=== PATIENT | male | born 1975 | race Caucasian/White ===

== ENCOUNTER 2017-10-31 07:56 | Inpatient (IN) ==
--- NOTE | 2017-10-30 20:39 | Discharge Summary ---
<Maya Madsen - Last Filed: 10/30/17 20:34> Date of Encounter: 10/30/17 - Discharge Diagnosis (1) Arthritis of knee, left Priority: Primary Status: Acute (2) Status post total knee replacement, left Priority: Primary Status: Acute (3) HTN (hypertension) Priority: Secondary Status: Chronic Qualifiers: Hypertension type: essential hypertension Qualified Code(s): I10 - Essential (primary) hypertension (4) DMII (diabetes mellitus, type 2) Priority: Secondary Status: Chronic Qualifiers: Diabetes mellitus skilled nursing insulin use: without petroleum terminal plant operator use Diabetes mellitus complication status: without complication Qualified Code(s): E11.9 - Type 2 diabetes mellitus without complications (5) Obesity Priority: Secondary Status: Chronic Qualifiers: Obesity type: due to excess calories Obesity classification: unspecified obesity classification Serious obesity comorbidity presence: without serious comorbidity Qualified Code(s): E66.09 - Other obesity due to excess calories - Hospital Course Hospital course: Mr. Garcia is a 42 year old male - Time Spent with Patient Total time spent providing and/or coordinating discharge services: - Discharge Medications Prescriptions: OxyCODONE/APAP 5/325 [Percocet 5/325 MG] 1 each PO Q6HR PRN 7 Days #28 tablet PRN Reason: Severe Pain Home Medications: Ergocalciferol (VITAMIN D2) [Vitamin D2 (50,000 UNIT)] 50,000 unit PO SUWE 09/10 [History] Nitroglycerin [Nitrostat] 0.4 mg SL AD PRN 09/10/15 [History] Omeprazole [PriLOSEC] 40 mg PO BID 09/10/15 [History] Potassium Chloride [K-Tab ER] 20 meq PO DAILY 09/10/15 [History] Celecoxib [Celebrex] 200 mg PO DAILY 07/08/17 [History] amLODIPine [Norvasc] 5 mg PO DAILY 07/08/17 [History] Aspirin Enteric Coated [Aspirin EC] 325 mg PO BID #20 tablet. 10/30/17 [Rx] Atorvastatin Calcium [Lipitor] 20 mg PO HS 10/31/17 [History] Budesonide/Formoterol 160/4.5 [Symbicort 160/4.5] 2 puff IH BIDR PRN 10/31/17 [ History] Escitalopram [Lexapro] 10 mg PO DAILY 10/31/17 [History] Fexofenadine HCl 180 mg PO DAILY 10/31/17 [History] Lisinopril/Hydrochlorothiazide [Zestoretic 20-25 mg Tablet] 1 tab PO DAILY 10/31 [History] clonazePAM [Klonopin] 0.5 mg PO TID PRN 10/31/17 [History] OxyCODONE/APAP 5/325 [Percocet 5/325 MG] 1 each PO Q6HR PRN 7 Days #28 tablet [Rx] Allergies/Adverse Reactions: 3 Allergy/AdvReac Type Severity Reaction Status Date / Time Amoxicillin Allergy Hives Verified 10/31/17 08:17 ampicillin Allergy Hives Verified 10/31/17 08:17 codeine Allergy Hives Verified 10/31/17 08:17 Penicillins Allergy Hives Verified 10/31/17 08:17 Primary care physician: Mitzi Cannon CNP - Patient Status Disposition: Transfer Inpatient Rehab Fac Condition: Good - Discharge Instructions Follow Up With: Saeid Fleming MD [Partnered Physician] - 11/30/17 4:45 pm Maya Madsen PAC [Physician Gray Mixing Operator] - 11/10/17 8:00 am Frank Lemus DO [Partnered Physician] - 12/20/17 9:30 am Mitzi Cannon CNP [Primary Care Provider] - Additional Instructions: Discharge Instructions: Total Knee Replacement Please call [facility] ([phone]), your Primary Care Physician, or report to the Emergency Room if you have any of the following symptoms: Nausea, vomiting, fever greater that 101.5, swelling, chest pain, shortness of breath, increased pain/redness/drainage/odor for your incision site, numbness/ tingling, or any other concerning symptoms. ACTIVITY:Weight-bearing as tolerated. You may progress off support (crutches or walker) as tolerated. MEDICATIONS: Upon discharge resume your home medications. Take all the medications as prescribed. Take a stool softener if taking narcotic pain medications. Stool softeners are only effective if you drink enough fluids. Drink 6-8 glass of water or fluids a day, unless this is not allowed for another health problem. Despite using stool softeners, if you haven't had a bowel movement in 3 days, please switch to a gentle laxative. Gentle laxatives are sold over the counter. You should have a bowel movement within 24 hours, if not call the office. You will be discharged from the hospital with a prescription for pain medication. You are encouraged to decrease the use of narcotic pain medication as tolerated. Should you require a refill, please call the office. [facility] prescribes narcotic pain medication for only 4-6 weeks after surgery. If you require pain medication beyond this time period, you may be referred to your Primary Care Physician or to the Pain Clinic for further evaluation. Plan ahead for refills on pain medication as many narcotics either need to be picked up at the office or mailed. It is best to call 48-72 hours in advance of needing a prescription refill so you don't run out of medication. To help control the post-operative pain, you may take NSAIDs (Aleve,Advil, Motrin, Ibuprofen, Naprosyn) or Tylenol as prescribed on the bottle in addition to the pain medication. ANTICOAGULATION (blood thinners): Continue your Aspirin, Lovenox or Coumadin as prescribed to help prevent a blood clot in the leg or in the lungs. As long as your incision remains dry and you tolerate the NSAIDs (Aleve, Advil, Motrin, ibuprofen, naprosyn), it is OK to use the NSAIDS while you are taking your anticoagulation medication. Should your incision start to drain, stop the NSAID and contact our office. Common symptoms of blood clot in the legs include: localized pain, swelling, calf tenderness, redness or discoloration of the skin. Blood clot in the lung symptoms include: shortness of breath, rapid pulse, sweating, and chest pain that worsens with deep breathing, coughing up blood, lightheadedness, feelings of anxiety. If you experience any of these symptoms notify your physician immediately, go to the emergency room, or if having trouble breathing, call 911. WOUND CARE: Leave the dressing on for 7 to 10days. You may change the dressing if it becomes saturated greater than 50%. Do not get the dressing wet at anytime. Wash your hands with antibacterial soap, rinse and dry prior to any wound care. If you have yisel the visiting nurse or rehab facility can remove the stapes 10-14 days after surgery and place steri-strips across the wound. Leave the steri-strips in place until they fall off on their won. You may let water from the shower run on top of the steri-strips. If you do not have a visiting nurse or rehab facility, you will need to return to the office at 10-14 days for the yisel to be removed. If you have itching or redness around the dressing call the office. FOLLOW-UP: Please follow up with your surgeon in the orthopedic clinic in 4 weeks from the day of surgery. If you have yisel that need to be removed, you will need to come back to the office in 10-14 days from the day of surgery. <Saeid Fleming - Last Filed: 11/02/17 06:33> Orders not resulted at time of discharge: Pending orders 10/31/17 US anesthesia pain block [US] Routine 10/31/17 00:01 XR knee LT limited 1-2V [XR] Routine H/H [Hemoglobin and Hematocrit] [HEME] Routine Date of Encounter: 11/02/17 Time of Encounter: 06:32 - Discharge Diagnosis (1) DMII (diabetes mellitus, type 2) Priority: Secondary Status: Chronic Qualifiers: Diabetes mellitus petroleum terminal plant operator insulin use: without petroleum terminal plant operator use Diabetes mellitus complication status: without complication Qualified Code(s): E11.9 - Type 2 diabetes mellitus without complications (2) Morbid obesity with BMI of 40.0-44.9, adult Priority: Secondary Status: Chronic (3) Spondylosis of lumbar region without myelopathy or radiculopathy Priority: Secondary Status: Chronic (4) Arthritis of knee, left Priority: Primary Status: Chronic (5) Status post total knee replacement, left Priority: Primary Status: Acute (6) HTN (hypertension) Priority: Secondary Status: Chronic Qualifiers: Hypertension type: essential hypertension Qualified Code(s): I10 - Essential (primary) hypertension - Hospital Course Hospital course: Mr. Garcia is a 42 year old male Status post left total knee replacement Discharge todayThe patient had an uneventful postoperative course. They received antibiotics and physical therapy and were discharged in stable condition. There will follow-up in the office in 2 weeks. - Time Spent with Patient Total time spent providing and/or coordinating discharge services: Primary care physician: Mitzi Cannon CNP - Patient Status Functional capacity at discharge: uses cane/walker Overall status at discharge: patient is progressing back to baseline
[2017-10-31] MEDS ORDERED: Albuterol 2.5 MG/3 ML NEBULIZER IH ONE (08:22)
[2017-10-31] MEDS ORDERED: Clindamycin 900 MG/50 ML 900 MG/50 ML IV.SOLN IVPB ONE (08:22)
[2017-10-31] MEDS ORDERED: Famotidine 20 MG/2 ML VIAL IVP ONE (08:26)
[2017-10-31] MEDS ORDERED: Plasma-Lyte A (PH 7.4) 1,000 ML IVC SCH (08:30)
--- NOTE | 2017-10-31 08:53 | Anesthesia Evaluation PreOp ---
Date of Encounter: 10/31/17 Time of Encounter: 08:47 - Past History Planned Operation: Left Total Knee Cardiac History: HTN, Hyperlipidemia Pulmonary History: Asthma Other Medical History: Renal (Stones), Diabetes Type II, GERD, Other ( Pancreatic insuff., [place] BMI-43) Anesthesia History: No Prior Anesthetic Complications, Past Anesthesia (Apy,, Left Knee scope, EGD,) Alcohol Use: none Drug use: none Medications and Allergies Ergocalciferol (VITAMIN D2) [Vitamin D2 (50,000 UNIT)] 50,000 unit PO SUWE 09/10 [History] Nitroglycerin [Nitrostat] 0.4 mg SL AD PRN 09/10/15 [History] Omeprazole [PriLOSEC] 40 mg PO BID 09/10/15 [History] Potassium Chloride [K-Tab ER] 20 meq PO DAILY 09/10/15 [History] Celecoxib [Celebrex] 200 mg PO DAILY 07/08/17 [History] amLODIPine [Norvasc] 5 mg PO DAILY 07/08/17 [History] Aspirin Enteric Coated [Aspirin EC] 325 mg PO BID #20 tablet. 10/30/17 [Rx] OxyCODONE Immed Rel [Roxicodone 5 MG] 5 mg PO Q6H PRN 7 Days #28 tablet [Rx] Atorvastatin Calcium [Lipitor] 20 mg PO HS 10/31/17 [History] Budesonide/Formoterol 160/4.5 [Symbicort 160/4.5] 2 puff IH BIDR PRN 10/31/17 [ History] Escitalopram [Lexapro] 10 mg PO DAILY 10/31/17 [History] Fexofenadine HCl 180 mg PO DAILY 10/31/17 [History] Lisinopril/Hydrochlorothiazide [Zestoretic 20-25 mg Tablet] 1 tab PO DAILY 10/31 [History] clonazePAM [Klonopin] 0.5 mg PO TID PRN 10/31/17 [History] 3 Allergy/AdvReac Type Severity Reaction Status Date / Time Amoxicillin Allergy Hives Verified 10/31/17 08:17 ampicillin Allergy Hives Verified 10/31/17 08:17 codeine Allergy Hives Verified 10/31/17 08:17 Penicillins Allergy Hives Verified 10/31/17 08:17 - Meds/Allergy Pre-op Review Medications Reviewed: Yes Allergies Reviewed: Yes Beta Blockers on Current Med List: No Anesthesia Results - Labs Laboratory Tests 10/12/17 10/12/17 10/12/17 14:10 14:10 14:10 WBC 11.6 H Hgb 15.8 Hct 45.2 Plt Count 291 INR 1.1 Sodium 139 Potassium 3.9 Carbon Dioxide 29 BUN 18 - Imaging EKG: report reviewed (SINUS RHYTHM) Anesthesia Exam O2 Sat Height 1.73 m Height 1.73 m Weight 128.367 kg Weight 128.367 kg O2 Sat by Pulse Oximetry 96 Vital Signs Temp Pulse Resp BP Pulse Ox 98.2 F 89 18 131/90 96 10/31/17 08:15 10/31/17 08:15 10/31/17 08:15 10/31/17 08:15 10/31/17 08:15 NPO (# of Hours): > 8 Hrs Pain Scale: 0 Pain Scale Used: Numeric (1 - 10) - HEENT Pupil (Motor): Pupils equal, EOMI Mallampati: II Teeth: Normal Oral Opening: Greater than 3 - CELL OPERATION SUPERVISOR LOC: Oriented CELL OPERATION SUPERVISOR Motor: Normal RUE, Normal LUE, Normal RLE, Normal LLE, Normal Face CELL OPERATION SUPERVISOR Sensory: Normal: RUE, LUE, RLE, LLE, Face - Cardiac Rhythm: Regular Murmur: None JVD: No Carotid Bruit: No - Pulmonary Breath Sounds: bilateral Clear Respiratory Effort: Symmetrical Anesthesia Assess/Plan ASA Score: 3 Modified Kisha Scale for Level of Consciousness: Cooperative, oriented, and tranquil Anesthetic Plan: General, Regional Autologous Blood: Yes Monitoring Plan: Standard Monitors Recovery Plan: PACU
[2017-10-31] MEDS: Gabapentin 300 MG CAPSULE PO STA (08:57)
--- NOTE | 2017-10-31 09:07 | History & Physical Report ---
Date of Encounter: 10/31/17 Time of Encounter: 09:07 24 Hour HP Update - Instructions Instructions: If the History and Physical is less than 30 days old and was completed prior to A.M. admission and or procedure and has NOT been updated on calendar day of procedure please complete this update prior to performing procedure. - Update Patient reports changes in Medical Condition: No Changes in examination, assessment, or condition: No Changes in Medication: No Preop tests/diagnostics Reviewed: Yes Surgery Remains Indicated: Yes Consent for Planned Operative Procedure(s) Verified: Yes - Pre-Operative Checklist Preoperative Checklist Indicated: No Prophylactic Antibiotic Ordered: Yes Is VTE Prophylaxis Indicated?: Yes
[2017-10-31] MEDS ORDERED: Lidocaine -MPF 2% 2 ML VIAL ONE (09:50)
[2017-10-31] MEDS ORDERED: Dexamethasone 4 MG/ML VIAL ONE (09:50)
[2017-10-31] MEDS ORDERED: Ondansetron 4 MG/2 ML VIAL ONE (09:50)
[2017-10-31] MEDS ORDERED: *HR* Propofol 200 MG/20 ML VIAL IVP ONE (09:51)
[2017-10-31] MEDS ORDERED: *HR* FentaNYL (PF) 100 MCG/2 ML VIAL ONE ×2 (09:51→11:43)
[2017-10-31] MEDS ORDERED: *HR* Midazolam HCl 2 MG/2 ML VIAL ONE (09:51)
[2017-10-31] MEDS ORDERED: ROPIVACAINE HCL/PF 0.5% 30 ML VIAL ONE ×2 (10:17)
[2017-10-31] MEDS ORDERED: Ethanol\\Acetic Acid\\Na Ace\\Ben 1,000 ML IRRIG.SOLN IR ONE (10:21)
[2017-10-31] MEDS ORDERED: *HR* Succinylcholine 200 MG/10 ML VIAL IVP ONE (10:57)
[2017-10-31] MEDS ORDERED: Acetaminophen IV 1,000 MG/100 ML INFUS..BTL ONE (11:04)
[2017-10-31] MEDS ORDERED: *HR* PHENYLEPHRINE 1,000 MCG/10 ML SYRINGE IVP ONE (11:23)
[2017-10-31] MEDS ORDERED: *HR* OxyCODONE Immed Rel 5 MG TABLET PO PRN ×2 (11:30→13:32)
[2017-10-31] MEDS ORDERED: Ondansetron 4 MG/2 ML VIAL IVP PRN ×2 (11:30→13:32)
[2017-10-31] MEDS ORDERED: *HR* Midazolam HCl 2 MG/2 ML VIAL IVP PRN (11:30)
[2017-10-31] MEDS ORDERED: *HR* HYDROmorphone 2 MG TABLET PO PRN (11:30)
--- NOTE | 2017-10-31 11:54 | Orthopedic Operative Note ---
Date of procedure: 10/31/17 Pre-op diagnosis: Left knee arthritis Post-op diagnosis: same Procedure: Procedure: Left robotic-assisted Total knee replacement Estimated blood loss: 200 cc Hardware: Metal and polyethylene replacement. [place] Femur: 4 Tibia: 5 PS insert: 9 Patella: 39 Exam Under anesthesia: 0 degrees extension 1 degree valgus as calculated by the robot full flexion and no instability Procedural Notes: Grade 4 arthritic changes medial compartment and patellofemoral joint Operative procedure: The patient was brought to the operating room and placed on the operating room table. After general anesthesia was administered the operative knee was examined. Findings were noted in the exam under anesthesia. The operative extremity was prepped and draped in sterile surgical fashion. The patient received IV antibiotics prior to skin incision. A standard midline incision was made centered over the patella. The incision was made through the skin and subcutaneous tissue. A medial parapatellar tendon approach was performed. Care was taken to preserve tissue along the medial aspect of the patella. And to protect the patella tendon. The deep MCL was released off the medial tibia. The infra patella fat pad was excised. The patella was everted and cut was made at the level of the insertion of the quadriceps and patella tendon. The patella was sized to 39 the guide was seated and the lug holes are drilled. Knee was brought into flexion. Patient noted to have grade 4 arthritic changes medial compartment patellofemoral joint. Steinmann pins were placed in the tibia and the femur for the tibial and femoral arrays respectively. Checkpoints were also placed in the tibia and the femur for calculation purposes. The knee including the femur and the tibial registered. Osteophytes , ACL and PCL were excised at this point. Extension and flexion were assessed with a valgus stress components were adjusted on the computer to balance the knee. Femoral cuts were made first with robotic assistance, these included the anterior cut posterior cuts chamfer cuts. Tibial cut was then performed with robotic assistance as well. Bone fragments were removed, as well as the medial and lateral meniscus. The size 4 femoral guide was seated box cut was made lug holes are drilled. The size 5 tibial tray was seated and prepared with the fin cutter. Trial reduction with the 9 PS Anusha revealed extension of 0 degree and neutral alignment and full flexion. No varus valgus instability. Trial reduction revealed excellent patella tracking. All trial components were removed all bony surfaces were irrigated. The Tibia was seated followed by the femur, The Anusha size 9 was seated and secured patella. Patient had similar findings for motion and stability. The knee was closed by the PA. The knee was then irrigated out with 2 L of pulse irrigation. The extensor mechanism was closed with #2 FiberWire suture and #2 PDS suture. The subcutaneous tissue was then irrigated and closed deep with #1 PDS suture superficially with 0 PDS suture and skin was closed with zip tie The patient was then placed in a sterile dressing and a postoperative brace extubated and transferred to recovery room in stable condition. Anesthesia: GETA Surgeon: Saeid Fleming Was there an electrician assistant present: Yes Reimbursement Consultant: July Hernandez Estimated blood loss (cc): 200 Condition: stable Disposition: PACU
[2017-10-31] MEDS ORDERED: EPHEDrine 50 MG/ML VIAL ONE (12:03)
--- NOTE | 2017-10-31 12:04 | Anesthesia Procedures ---
Date of Encounter: 10/31/17 Time of Encounter: 10:30 Procedures: Anesthesia - Nerve Block Procedure Date: 10/31/17 Time: 10:30 Allergies/Adv Reactions: Amoxicillin Allergy (Verified 10/31/17 08:17) Hives ampicillin Allergy (Verified 10/31/17 08:17) Hives codeine Allergy (Verified 10/31/17 08:17) Hives Penicillins Allergy (Verified 10/31/17 08:17) Hives Surgical Procedure: left total knee robotic Checklist: Correct Patient Identifier, Correct procedure, History checked Correct side: Left Blood Thinner: No Monitor Applied: EKG, BP, Pulse Oximetry Supplemental Oxygen via Nasal Cannula (L/min): 2 Sedation: Versed (mg): 2 Sedation: Fentanyl (mcg): 100 Indication: Post Op Analgesia Pre-op Neuro Deficits: No Block Type: Femoral, Other (IPACK) Catheter placed: No Sterile Technique: Yes Ultrasound used: Yes Anatomy identified: Yes Visual spread of Local: Yes Neuro Stimulation: Yes Nerve Stimulator Range: 0.2 - 0.4 mA Blood on Needle Aspiration: No Smooth Injection of Local: Yes Pain with Injection of Local: No Prep: Chlorhexadine Needle: 21 x 100 mm Stimuplex Local: Ropivacaine (0.5% Ropi 30ml with 10mg Decadron (femoral) 0.25% Ropi 20ml IPACK) Volume (cc): 50 Number of Attempts: 1 Complications: None/effective block Vitals: see nurses notes
--- NOTE | 2017-10-31 13:09 | Anesthesia Evaluation Post Op ---
Date of Encounter: 10/31/17 Time of Encounter: 13:15 - Vital Signs Vital Signs: Vital Signs/O2 Sat/Glucose, Most Current Temp Pulse Resp BP Pulse Ox 10/31/17 12:49 111 12 140/90 96 10/31/17 12:39 112 16 122/80 99 10/31/17 12:29 98.6 F 118 21 118/79 95 10/31/17 10:43 82 18 148/86 98 10/31/17 10:34 82 18 147/93 96 10/31/17 10:24 93 18 149/100 99 - Lungs Lungs: Clear Ascult./Percussion - Airway Airway: Non-obstructed - Cardiovascular Regular Rate - Mental Status Mental Status: Alert & Oriented, Answers Appropriately - Pain Pain Scale: 1 - Nausea Vomiting Nausea Vomiting: Not Present - Hydration Hydration: Ice chips - Discharge PostOp Status: Transfer Patient to floor
[2017-10-31] MEDS ORDERED: clonazePAM 0.5 MG TABLET PO PRN (13:32)
[2017-10-31] MEDS ORDERED: Dextrose Gel 15 GM/37.5 ML TUBE PO PRN ×2 (13:32)
[2017-10-31] MEDS ORDERED: D5% in Water 1,000 ML IVC PRN (13:32)
[2017-10-31] MEDS ORDERED: Sennosides 8.6 MG TABLET PO PRN (13:32)
[2017-10-31] MEDS ORDERED: Nitroglycerin 0.4 MG TAB.SUBL SL PRN (13:32)
[2017-10-31] MEDS ORDERED: Budesonide/Formoterol 160/4.5 MDI IH PRN (13:32)
[2017-10-31] MEDS ORDERED: Temazepam 15 MG CAPSULE PO PRN (13:32)
[2017-10-31] MEDS ORDERED: Naloxone 0.4 MG/ML INJ IVP PRN (13:32)
[2017-10-31] MEDS ORDERED: *HR* Dextrose 50 % in Water (Syg) 50 ML SYRINGE IVP PRN (13:32)
[2017-10-31] MEDS ORDERED: Ringers Solution, Lactated 1,000 ML IVC SCH (13:32)
[2017-10-31] MEDS ORDERED: MOM Conc 10 ML UD.LIQ PO PRN (13:32)
[2017-10-31 13:36] LABS: Hematocrit 41.5 % (37.5-50.1); Hemoglobin 14.2 g/dL (12.9-16.9)
[2017-10-31] MEDS: Insulin LISPRO 300 UNITS/3 ML VIAL SQ SCH ×3 (14:20→20:46)
[2017-10-31] MEDS: *HR* OxyCODONE Immed Rel 5 MG TABLET PO PRN ×2 (15:28→21:56)
[2017-10-31] MEDS ORDERED: Ketorolac 15 MG/ML VIAL IVP ONE (17:26)
[2017-10-31] MEDS: *HR* Enoxaparin 30 MG/0.3 ML SYRINGE SQ SCH (17:45)
[2017-10-31] MEDS: Clindamycin 900 MG/50 ML 900 MG/50 ML IV.SOLN IVPB SCH (17:46)
[2017-10-31] MEDS ORDERED: *HR* Enoxaparin 30 MG/0.3 ML SYRINGE SQ SCH (18:00)
[2017-11-01] MEDS: Clindamycin 900 MG/50 ML 900 MG/50 ML IV.SOLN IVPB SCH (00:36)
[2017-11-01] MEDS: *HR* OxyCODONE Immed Rel 5 MG TABLET PO PRN ×2 (05:26→12:23)
[2017-11-01] MEDS: *HR* Enoxaparin 30 MG/0.3 ML SYRINGE SQ SCH ×2 (05:26→16:53)
[2017-11-01] MEDS ORDERED: Ketorolac 30 MG/ML VIAL IVP PRN (06:29)
--- NOTE | 2017-11-01 06:29 | Orthopedics Progress Note ---
Date of Encounter: 11/01/17 Time of Encounter: 06:29 - Assessment and Plan (1) DMII (diabetes mellitus, type 2) Current Visit: No Status: Chronic Qualifiers: Diabetes mellitus terminal press operator insulin use: without terminal press operator use Diabetes mellitus complication status: without complication Qualified Code(s): E11.9 - Type 2 diabetes mellitus without complications (2) Morbid obesity with BMI of 40.0-44.9, adult Current Visit: Yes Status: Chronic (3) Spondylosis of lumbar region without myelopathy or radiculopathy Current Visit: No Status: Chronic (4) Arthritis of knee, left Current Visit: No Status: Chronic (5) Status post total knee replacement, left Current Visit: No Status: Acute (6) HTN (hypertension) Current Visit: No Status: Chronic Qualifiers: Hypertension type: essential hypertension Qualified Code(s): I10 - Essential (primary) hypertension Subjective Interval history: Patient was seen this morning doing well without complaints. Afebrile vital signs stable. Operative extremity: Neurovascularly intact Dressing clean dry and intact Calves nontender Assessment and plan: Continue with postoperative care Objective Vital signs: Vital Signs Temp Pulse Resp BP Pulse Ox 11/01/17 04:05 97.8 F 110 16 115/73 96 10/31/17 23:19 97.9 F 119 18 112/65 96 10/31/17 20:01 97.9 F 118 16 107/66 94 10/31/17 16:34 98.6 F 100 18 136/78 95 10/31/17 15:34 97.6 F 114 16 142/77 96 10/31/17 14:19 97.6 F 114 16 142/77 96 10/31/17 13:33 98.6 F 117 18 132/73 94 10/31/17 13:09 98.7 F 112 16 142/84 97 10/31/17 12:59 98.7 F 111 16 127/81 97 10/31/17 12:49 111 12 140/90 96 10/31/17 12:39 112 16 122/80 99 10/31/17 12:29 98.6 F 118 21 118/79 95 10/31/17 10:43 82 18 148/86 98 10/31/17 10:34 82 18 147/93 96 10/31/17 10:24 93 18 149/100 99 10/31/17 08:15 98.2 F 89 18 131/90 96 Intake and Output 10/31/17 10/31/17 11/01/17 15:59 23:59 07:59 Intake Total 50 / 50 450 / 450 480 / 480 Output Total 200 / 200 200 / 200 350 / 350 Balance -150 / -150 250 / 250 130 / 130 Intake: IV Fluids 50 / 50 50 / 50 Cleocin Premix 900 MG/50 ML 900 50 / 50 50 / 50 mg In 50 ml @ 50 mls/hr IVPB Q8HR [facility] Rx#:[id number] Oral 0 / 0 400 / 400 480 / 480 Output: Urine 200 / 200 350 / 350 Estimated Blood Loss 200 / 200 Other: Weight 128.367 kg Blood Glucose* 176 263 - Labs CBC & BMP: 10/31/17 12:55 Labs: Abnormal lab results POC Glucose 263 (58-89) H 10/31/17 20:13 - VTE Documentation of Mechanical Device: Venous foot pump, device Consult Discharge Plan - Plan Referrals: Mitzi Cannon ASSET SPECIALIST [Primary Care Provider] -
[2017-11-01] MEDS ORDERED: Acetaminophen IV 1,000 MG/100 ML INFUS..BTL IVPB PRN (06:30)
[2017-11-01 06:57] LABS: Hematocrit 38.4 % (37.5-50.1); Hemoglobin 12.9 g/dL (12.9-16.9)
[2017-11-01 07:13] LABS: BUN/Creatinine Ratio 27 (6-26); Blood Urea Nitrogen 26 mg/dL (6-20); Calcium 8.8 mg/dL (8.6-10.3); Carbon Dioxide 29 mEq/L (23-29); Chloride 97 mEq/L (98-107); Glucose 206 mg/dL (70-105); Osmolality,Calculated 291 (280-300); Potassium 3.3 mEq/L (3.5-5.1); Sodium 135 mEq/L (136-145); eGFR For African Americans > 60 (> 60); eGFR For Non-African Americans > 60 (> 60)
[2017-11-01] MEDS: amLODIPine 5 MG TABLET PO SCH (08:05)
[2017-11-01] MEDS: Insulin LISPRO 300 UNITS/3 ML VIAL SQ SCH ×4 (08:07→23:52)
[2017-11-01] MEDS: Ketorolac 30 MG/ML VIAL IVP PRN ×2 (08:34→22:14)
[2017-11-01] MEDS: Loratadine 10 MG TABLET PO SCH (09:30)
[2017-11-01] MEDS ORDERED: *HR* OxyCODONE/APAP 5/325 TABLET PO PRN (13:00)
--- NOTE | 2017-11-01 15:29 | Event Note ---
Date of Encounter: 11/01/17 Time of Encounter: 12:00 PCR - POD#1 Left TKR - robo 11/01/17 Patient seen at bedside. Labs reviewed. Pain control: Discussed in depth - he refused PT yesterday but willing to participate this morning. Participating in PT. All questions and concerns addressed. Educated on use of incentive spirometer. Encouraged ambulation and proper hydration. Patient educated on post-operative restrictions and post-operative care. Addressed: Changing pain medication to Percocet - new RX printed. Added Lidoderm patch Taking Toradol. Discharge plan: D/C home with HH once PT helps with stairs and pain better controlled - goal is Tuesday AM. HH continuity placed.
--- NOTE | 2017-11-01 15:33 | Physician Discharge Referral ---
Home Health/Hosp Referral Info Transfer to: Home Health Attending Provider: Provider in Charge Post Discharge: PCP - Diagnosis (1) Arthritis of knee, left Priority: Primary Status: Chronic (2) Status post total knee replacement, left Priority: Primary Status: Acute (3) HTN (hypertension) Priority: Secondary Status: Chronic (4) DMII (diabetes mellitus, type 2) Priority: Secondary Status: Chronic (5) Obesity Priority: Secondary Status: Chronic - Respiratory Orders None Smoking Cessation: Smoking cessation has been advised. For more information, call the [place] Tobacco Quit Line at 4-919-RVPC-NOW. - Diet/Nutrition Diet/Nutrition Orders: Regular - Activity Activity Orders: Up ad sachi, Ambulate - Services Needed Following services are medically necessary services: Nursing, Home Health Aide, Physical Therapy, Occupational Therapy Home Care Orders: Knee Continuity: Opsite dressing, leave intact until first post-operative visit. If dressing becomes >50% saturated, contact office, remove dressing and place appropriate dressing in its place. Do not allow for dressing to get wet. Zipline/[place] in place, plan to remove at post-operative day #14-16. Total Joint Precautions x 6 weeks Apply cold therapy wrap 3-6x/day for 20 minutes at a time. Encourage ambulation throughout the day Use Incentive spirometer 10x/hour. Elevate affected extremity above heart as tolerated. Brace: Wear knee immobilizer at night x 2 weeks. - Transfer Medications Prescriptions: OxyCODONE/APAP 5/325 [Percocet 5/325 MG] 1 each PO Q6HR PRN 7 Days #28 tablet PRN Reason: Severe Pain Home Medications: Ergocalciferol (VITAMIN D2) [Vitamin D2 (50,000 UNIT)] 50,000 unit PO SUWE 09/10 [History] Nitroglycerin [Nitrostat] 0.4 mg SL AD PRN 09/10/15 [History] Omeprazole [PriLOSEC] 40 mg PO BID 09/10/15 [History] Potassium Chloride [K-Tab ER] 20 meq PO DAILY 09/10/15 [History] Celecoxib [Celebrex] 200 mg PO DAILY 07/08/17 [History] amLODIPine [Norvasc] 5 mg PO DAILY 07/08/17 [History] Aspirin Enteric Coated [Aspirin EC] 325 mg PO BID #20 tablet. 10/30/17 [Rx] Atorvastatin Calcium [Lipitor] 20 mg PO HS 10/31/17 [History] Budesonide/Formoterol 160/4.5 [Symbicort 160/4.5] 2 puff IH BIDR PRN 10/31/17 [ History] Escitalopram [Lexapro] 10 mg PO DAILY 10/31/17 [History] Fexofenadine HCl 180 mg PO DAILY 10/31/17 [History] Lisinopril/Hydrochlorothiazide [Zestoretic 20-25 mg Tablet] 1 tab PO DAILY 10/31 [History] clonazePAM [Klonopin] 0.5 mg PO TID PRN 10/31/17 [History] OxyCODONE/APAP 5/325 [Percocet 5/325 MG] 1 each PO Q6HR PRN 7 Days #28 tablet [Rx] Allergies/Adverse Reactions: 3 Allergy/AdvReac Type Severity Reaction Status Date / Time Amoxicillin Allergy Hives Verified 10/31/17 08:17 ampicillin Allergy Hives Verified 10/31/17 08:17 codeine Allergy Hives Verified 10/31/17 08:17 Penicillins Allergy Hives Verified 10/31/17 08:17 Certification: Further, I certify that my clinical findings support that this patient is homebound (i.e. absences from home require considerable and taxing effort and are for medical reasons or yazidism services or infrequently or short duration when for other reasons) because: Homebound Reason: Absences from home are contraindicated except to recieve medical care Attestation: My signature below is to certify that this patient is under my care and that I, or nurse practitioner, or a physician's virtual customer assistant working with me, has a face-to -face encounter with this patient.
[2017-11-01] MEDS: *HR* OxyCODONE/APAP 10/325 TABLET PO PRN (21:10)
[2017-11-02] MEDS: Ketorolac 30 MG/ML VIAL IVP PRN ×2 (04:02→09:50)
[2017-11-02] MEDS: *HR* Enoxaparin 30 MG/0.3 ML SYRINGE SQ SCH (05:36)
[2017-11-02 06:33] LABS: Hematocrit 33.7 % (37.5-50.1); Hemoglobin 11.7 g/dL (12.9-16.9)
--- NOTE | 2017-11-02 06:34 | Orthopedics Progress Note ---
Date of Encounter: 11/02/17 Time of Encounter: 06:33 - Assessment and Plan (1) DMII (diabetes mellitus, type 2) Current Visit: No Status: Chronic Qualifiers: Diabetes mellitus intermediate card tender insulin use: without intermediate card tender use Diabetes mellitus complication status: without complication Qualified Code(s): E11.9 - Type 2 diabetes mellitus without complications (2) Morbid obesity with BMI of 40.0-44.9, adult Current Visit: Yes Status: Chronic (3) Spondylosis of lumbar region without myelopathy or radiculopathy Current Visit: No Status: Chronic (4) Arthritis of knee, left Current Visit: No Status: Chronic (5) Status post total knee replacement, left Current Visit: No Status: Acute (6) HTN (hypertension) Current Visit: No Status: Chronic Qualifiers: Hypertension type: essential hypertension Qualified Code(s): I10 - Essential (primary) hypertension Subjective Interval history: Patient was seen this morning doing well without complaints. Afebrile vital signs stable. Operative extremity: Neurovascularly intact Dressing clean dry and intact Calves nontender Assessment and plan: Continue with postoperative care Discharged today Objective Vital signs: Vital Signs Temp Pulse Resp BP Pulse Ox 11/01/17 23:25 98.1 F 101 16 148/90 92 11/01/17 20:12 98.6 F 108 16 146/81 95 11/01/17 16:41 98.0 F 87 16 117/82 96 11/01/17 11:26 98.3 F 111 16 122/82 96 11/01/17 07:32 98.3 F 104 16 118/72 98 Intake and Output 11/01/17 11/01/17 11/02/17 15:59 23:59 07:59 Intake Total 360 / 360 50 / 50 Output Total 200 / 200 350 / 350 380 / 380 Balance 160 / 160 -300 / -300 -380 / -380 Intake: Oral 360 / 360 50 / 50 Output: Urine 200 / 200 350 / 350 380 / 380 Other: Meal Lunch Percent of Meal Consumed 100% Blood Glucose* 188 181 - Labs CBC & BMP: 11/01/17 06:29 11/01/17 06:29 Labs: Abnormal lab results Sodium 135 mEq/L (136-145) L 11/01/17 06:29 Potassium 3.3 mEq/L (3.5-5.1) L 11/01/17 06:29 Chloride 97 mEq/L (98-107) L 11/01/17 06:29 BUN 26 mg/dL (6-20) H 11/01/17 06:29 BUN/Creatinine Ratio 27 (6-26) H 11/01/17 06:29 Glucose 206 mg/dL (70-105) H 11/01/17 06:29 POC Glucose 181 (58-89) H 11/01/17 20:03 - VTE Documentation of Mechanical Device: Venous foot pump, device Consult Discharge Plan - Plan Additional Instructions: Discharge Instructions: Total Knee Replacement Please call [facility] ([phone]), your Primary Care Physician, or report to the Emergency Room if you have any of the following symptoms: Nausea, vomiting, fever greater that 101.5, swelling, chest pain, shortness of breath, increased pain/redness/drainage/odor for your incision site, numbness/ tingling, or any other concerning symptoms. ACTIVITY:Weight-bearing as tolerated. You may progress off support (crutches or walker) as tolerated. MEDICATIONS: Upon discharge resume your home medications. Take all the medications as prescribed. Take a stool softener if taking narcotic pain medications. Stool softeners are only effective if you drink enough fluids. Drink 6-8 glass of water or fluids a day, unless this is not allowed for another health problem. Despite using stool softeners, if you haven't had a bowel movement in 3 days, please switch to a gentle laxative. Gentle laxatives are sold over the counter. You should have a bowel movement within 24 hours, if not call the office. You will be discharged from the hospital with a prescription for pain medication. You are encouraged to decrease the use of narcotic pain medication as tolerated. Should you require a refill, please call the office. [facility] prescribes narcotic pain medication for only 4-6 weeks after surgery. If you require pain medication beyond this time period, you may be referred to your Primary Care Physician or to the Pain Clinic for further evaluation. Plan ahead for refills on pain medication as many narcotics either need to be picked up at the office or mailed. It is best to call 48-72 hours in advance of needing a prescription refill so you don't run out of medication. To help control the post-operative pain, you may take NSAIDs (Aleve,Advil, Motrin, Ibuprofen, Naprosyn) or Tylenol as prescribed on the bottle in addition to the pain medication. ANTICOAGULATION (blood thinners): Continue your Aspirin, Lovenox or Coumadin as prescribed to help prevent a blood clot in the leg or in the lungs. As long as your incision remains dry and you tolerate the NSAIDs (Aleve, Advil, Motrin, ibuprofen, naprosyn), it is OK to use the NSAIDS while you are taking your anticoagulation medication. Should your incision start to drain, stop the NSAID and contact our office. Common symptoms of blood clot in the legs include: localized pain, swelling, calf tenderness, redness or discoloration of the skin. Blood clot in the lung symptoms include: shortness of breath, rapid pulse, sweating, and chest pain that worsens with deep breathing, coughing up blood, lightheadedness, feelings of anxiety. If you experience any of these symptoms notify your physician immediately, go to the emergency room, or if having trouble breathing, call 911. WOUND CARE: Leave the dressing on for 7 to 10days. You may change the dressing if it becomes saturated greater than 50%. Do not get the dressing wet at anytime. Wash your hands with antibacterial soap, rinse and dry prior to any wound care. If you have yisel the visiting nurse or rehab facility can remove the stapes 10-14 days after surgery and place steri-strips across the wound. Leave the steri-strips in place until they fall off on their won. You may let water from the shower run on top of the steri-strips. If you do not have a visiting nurse or rehab facility, you will need to return to the office at 10-14 days for the yisel to be removed. If you have itching or redness around the dressing call the office. FOLLOW-UP: Please follow up with your surgeon in the orthopedic clinic in 4 weeks from the day of surgery. If you have yisel that need to be removed, you will need to come back to the office in 10-14 days from the day of surgery. Referrals: Saeid Fleming MD [Partnered Physician] - 11/30/17 4:45 pm Maya Madsen PAC [Physician Supervisor Stitching Department] - 11/10/17 8:00 am Frank Lemus DO [Partnered Physician] - 12/20/17 9:30 am Mitzi Cannon CNP [Primary Care Provider] - Prescriptions: OxyCODONE/APAP 5/325 [Percocet 5/325 MG] 1 each PO Q6HR PRN 7 Days #28 tablet PRN Reason: Severe Pain
[2017-11-02 06:46] LABS: BUN/Creatinine Ratio 33 (6-26); Blood Urea Nitrogen 26 mg/dL (6-20); Calcium 8.5 mg/dL (8.6-10.3); Carbon Dioxide 32 mEq/L (23-29); Chloride 99 mEq/L (98-107); Glucose 141 mg/dL (70-105); Osmolality,Calculated 291 (280-300); Potassium 3.1 mEq/L (3.5-5.1); Sodium 137 mEq/L (136-145); eGFR For African Americans > 60 (> 60); eGFR For Non-African Americans > 60 (> 60)
[2017-11-02 07:11] VITALS: BP 142/96
[2017-11-02] MEDS: *HR* OxyCODONE/APAP 10/325 TABLET PO PRN (07:16)
[2017-11-02] MEDS: Insulin LISPRO 300 UNITS/3 ML VIAL SQ SCH (08:23)
[2017-11-02] MEDS: amLODIPine 5 MG TABLET PO SCH (08:24)
[2017-11-02] MEDS: Loratadine 10 MG TABLET PO SCH (08:24)
[2017-11-02] MEDS ORDERED: FLUARIX QUAD 2017-18 36MOS UP/PF 0.5 ML SYRINGE IM ONE (09:42)
--- NOTE | 2017-11-02 16:15 | Physician Discharge Referral ---
ExtendedCare Referral Info Transfer To: [facility] Provider in Charge: Provider in Charge after Transfer: PCP Institutional Level of Care: Skilled - Diagnosis (1) Arthritis of knee, left Priority: Primary Status: Chronic (2) Status post total knee replacement, left Priority: Primary Status: Acute (3) HTN (hypertension) Priority: Secondary Status: Chronic (4) DMII (diabetes mellitus, type 2) Priority: Secondary Status: Chronic (5) Obesity Priority: Secondary Status: Chronic Expected Duration of Placement: < 30 days Prognosis: Good Aware of Diagnosis: Patient Aware of Prognosis: Patient - Transfer Medications Prescriptions: OxyCODONE/APAP 5/325 [Percocet 5/325 MG] 1 each PO Q6HR PRN 7 Days #28 tablet PRN Reason: Severe Pain Home Medications: Ergocalciferol (VITAMIN D2) [Vitamin D2 (50,000 UNIT)] 50,000 unit PO SUWE 09/10 [History] Nitroglycerin [Nitrostat] 0.4 mg SL AD PRN 09/10/15 [History] Omeprazole [PriLOSEC] 40 mg PO BID 09/10/15 [History] Potassium Chloride [K-Tab ER] 20 meq PO DAILY 09/10/15 [History] Celecoxib [Celebrex] 200 mg PO DAILY 07/08/17 [History] amLODIPine [Norvasc] 5 mg PO DAILY 07/08/17 [History] Aspirin Enteric Coated [Aspirin EC] 325 mg PO BID #20 tablet. 10/30/17 [Rx] Atorvastatin Calcium [Lipitor] 20 mg PO HS 10/31/17 [History] Budesonide/Formoterol 160/4.5 [Symbicort 160/4.5] 2 puff IH BIDR PRN 10/31/17 [ History] Escitalopram [Lexapro] 10 mg PO DAILY 10/31/17 [History] Fexofenadine HCl 180 mg PO DAILY 10/31/17 [History] Lisinopril/Hydrochlorothiazide [Zestoretic 20-25 mg Tablet] 1 tab PO DAILY 10/31 [History] clonazePAM [Klonopin] 0.5 mg PO TID PRN 10/31/17 [History] OxyCODONE/APAP 5/325 [Percocet 5/325 MG] 1 each PO Q6HR PRN 7 Days #28 tablet [Rx] Allergies/Adverse Reactions: 3 Allergy/AdvReac Type Severity Reaction Status Date / Time Amoxicillin Allergy Hives Verified 10/31/17 08:17 ampicillin Allergy Hives Verified 10/31/17 08:17 codeine Allergy Hives Verified 10/31/17 08:17 Penicillins Allergy Hives Verified 10/31/17 08:17 - Respiratory Orders None Smoking Cessation: Smoking cessation has been advised. For more information, call the [place] Tobacco Quit Line at 6-976-AGLR-NOW. - Ancillary Orders May use pressure relief devices daily prn, May go on EBENEZER w/family/respon democrat w /meds at nurse discretion PRN - Mobility Orders Chair, Ambulate - Rehabiliation Orders Rehab Potential: Good Rehab Orders: ROM Exercises, Evaluation for Physical Therapy, Evaluation for Occupational Therapy - Treatments List/Other: Opsite dressing, leave intact until first post-operative visit. If dressing becomes >50% saturated, contact office, remove dressing and place appropriate dressing in its place. Do not allow for dressing to get wet. Zipline dressing in place, plan to remove at POD#14-16. PT: Total Joint Precautions x 6 weeks Apply ICE/cold therapy wrap 3-6x/day for 20 minutes at a time. Encourage ambulation throughout the day and incentive spirometer 10x/hour. Elevate affected extremity above heart as tolerated. Brace: Knee immobilizer at night until first post-operative appointment. CERTIFICATION: I certify that the transfer of the above named patient to an Extended Care Facility is necessary for the continuing treatment of the diagnosis listed. The above information is true and accurate reflection of patient's current condition. Confidential - Redisclosure prohibited without a patient's written consent.
== END 2017-11-02 11:29 | DRG 302 ==
LOC: SAMDAY 07:56 → 3NENU 13:31
PROVIDERS: ADMIT Orthopaedic Surgery; ATTEND Orthopaedic Surgery

== ENCOUNTER 2018-08-28 14:47 | Observation (INO) ==
[2018-08-28] MEDS ORDERED: Aspirin 81 MG TAB.CHEW PO ONE (15:12)
--- NOTE | 2018-08-28 15:16 | Emergency Department Note ---
Disposition Clinical Impression: Hypertensive emergency Chest pain Qualifiers: Chest pain type: unspecified Qualified Code(s): R07.9 - Chest pain, unspecified Disposition: Admitted As Inpatient Condition: Good Time of Disposition: 17:05 General Adult HPI - General Chief complaint: ED Chest Pain Stated complaint: High BP sent from cardiology Time Seen by Provider: 08/28/18 14:57 Source: patient Mode of arrival: ambulatory Limitations: no limitations Nursing Notes Reviewed: Yes Vital Signs Reviewed: Yes - History of Present Illness HPI Narrative: Patient is a 43-year-old male that presents emergency Department with reports of chest pain and elevated blood pressure. Patient states this is been ongoing for the past 2-3 days. Patient is a blood pressure at home was in the upper 180s. Patient states that he was seen by Dr. Chani Navarro today recommended that he come to the emergency department. Patient states that his chest pain is located in the center of his chest. Patient states that he has had some diaphoresis and nausea associated with his chest pain. Patient denies any radiation of his chest pain. Patient states that he has a long-standing family history of possible sudden cardiac and relatives having MIs in their 30s. Patient also states that his brother had to have coronary bypass in his 40s. Patient states that he has had a previous catheterization that showed mild disease. Patient states that he does take blood pressure medication lisinopril and metoprolol. Patient states that he has been taking his medications regularly. Pain Scale: 6 - Related Data Home Medications Medication Instructions Recorded Confirmed Albuterol Sulfate [Ventolin Hfa] 2 puff IH Q6H PRN 04/13/18 08/28/18 Amlodipine Besylate 2.5 mg PO DAILY 04/13/18 08/28/18 Atorvastatin Calcium [Lipitor] 20 mg PO QPM 04/13/18 08/28/18 Ergocalciferol (VITAMIN D2) 50,000 unit PO MOWEFR 04/13/18 08/28/18 [Vitamin D2] Fexofenadine/Pseudoephedrine 1 each PO DAILY 04/13/18 08/28/18 [Mary-D 24 Hour Tablet] Gabapentin [Neurontin] 800 mg PO TID 04/13/18 08/28/18 Lisinopril [Zestril] 40 mg PO DAILY 04/13/18 08/28/18 Meloxicam 15 mg PO DAILY 04/13/18 08/28/18 Metoprolol Tartrate [Lopressor] 25 mg PO BID 04/13/18 08/28/18 Omeprazole [PriLOSEC] 40 mg PO BID 04/13/18 08/28/18 Potassium Chloride [K-Tab ER] 20 meq PO DAILY 04/13/18 08/28/18 Aspirin [Adult Aspirin] 81 mg PO DAILY 08/28/18 08/28/18 Lidocaine Patch [Lidoderm 5% patch] 1 each TP DAILY 08/28/18 08/28/18 Oxycodone HCl/Acetaminophen 1 tab PO TID 08/28/18 08/28/18 [Percocet 5-325 mg Tablet] Allergies Allergy/AdvReac Type Severity Reaction Status Date / Time Amoxicillin Allergy Hives Verified 07/26/18 11:06 ampicillin Allergy Hives Verified 07/26/18 11:06 codeine Allergy Hives Verified 07/26/18 11:06 metformin Allergy See Verified 07/26/18 11:06 Comments Penicillins Allergy Hives Verified 07/26/18 11:06 hydrocodone AdvReac Nausea Verified 07/26/18 11:06 All systems ED: reviewed and negative except as stated. Constitutional: Reports: other (Diaphoresis). Denies: fever Cardiovascular: Reports: chest pain Respiratory: Denies: dyspnea Gastrointestinal: Reports: nausea. Denies: abdominal pain, vomiting, diarrhea Past Medical History - Past Medical History Medical history: Reports: arthritis, asthma, diabetes, fibromyalgia, GERD, hypertension, kidney stones Surgical history: Reports: appendectomy Psychiatric history: Reports: anxiety - Social History Smoking Status: Never smoker Smokeless Tobacco Status: No Alcohol use: Reports: none Drug use: Reports: none Physical Exam - General Limitations: no limitations General appearance: alert, in no apparent distress - Head Head exam: atraumatic, normocephalic - Eye Eye exam: Present: normal appearance, EOMI - Neck Neck exam: Present: normal inspection, full ROM, trachea midline - Respiratory Respiratory exam: Present: normal lung sounds bilaterally. Absent: respiratory distress, wheezes - Cardiovascular Cardiovascular exam: Present: regular rate, normal rhythm, normal heart sounds, +S1, +S2 - Abdominal Exam Abdominal exam: Present: soft, Non-Tender, normal bowel sounds - Neurological Exam Neurological exam: Present: alert, oriented X3 - Psychiatric Psychiatric exam: Present: normal affect, normal mood - Skin Skin exam: Present: warm, dry, intact Course Vital Signs Temperature 98.7 F 08/28/18 14:52 Pulse Rate 81 08/28/18 14:52 Respiratory Rate 16 08/28/18 14:52 Blood Pressure 191/121 08/28/18 14:52 O2 Sat by Pulse Oximetry 98 08/28/18 14:52 Temperature 98.7 F 08/28/18 15:15 Pulse Rate 81 08/28/18 15:15 Respiratory Rate 16 08/28/18 15:15 Blood Pressure 191/121 08/28/18 15:15 O2 Sat by Pulse Oximetry 98 08/28/18 15:15 Oxygen Delivery Oxygen Delivery Room Air Medical Decision Making - MDM Narrative Medical decision making narrative: Due the patient presents emergency Department with reports of chest pain with elevated blood pressure we will obtain basic laboratory testing initial given aspirin and nitroglycerin here in the emergency department to assist with the patient's chest pain as well as a pressure. Patient is initial heart score of 3. However due to the patient's history of present illness as well as his family history patient will likely require admission. Patient's laboratory testing is relatively unremarkable other than a mildly low potassium of 3.0. Patient will be given 40 of oral potassium. Patient will require admission to the hospital. Patient's repeat blood pressure after receiving 2 doses of nitroglycerin was 128/81. Patient did have recurrence of his chest pain slowly given 1 additional nitroglycerin at this time. I called and spoke the admitting hospital Dr. White and he has accepted the patient to their service. Patient be admitted to the hospital this time for further evaluation and management. - Medical Records Medical records reviewed: Yes I reviewed the patient's medical records. - Lab Data Lab results reviewed: Yes I reviewed the patient's lab results. Result diagrams: 08/28/18 15:20 08/28/18 22:24 - Radiology Data Radiology results reviewed: Yes I reviewed the patient's radiology results. Chest X-Ray 08/28/18 15:12 IMPRESSION: No acute cardiopulmonary process identified. D/ / Brendan Knapp MD / Brendan Knapp MD Interpreting Provider: Brendan Knapp MD Head CT 08/28/18 15:38 IMPRESSION: No acute intracranial abnormality. D/ / Higinio Lamb MD / Higinio Lamb MD Interpreting Provider: Higinio Lamb MD - EKG Data EKG #1 EKG attestation: Yes I reviewed and interpreted this EKG. EKG results narrative: EKG shows a sinus rhythm at a rate of 82 bpm, HI interval 137, QRS duration 91, QTC of 415. There is no evidence of STEMI and EKG. Attestation Statement - Attestation Attestation: I, Luis Han, examined this patient and my medical decision-making was reviewed with the PALLETIZER OPERATOR/PA/Advanced Practice Nurse/Resident Physician. I agree with the documented findings, disposition and treatment plan as described except to the extent set forth below. 43-year-old male presents emergency Department with concerns of elevated blood pressure. Patient was sent from cardiology for further evaluation. Patient states there is a significant family history of early cardiac . His BP is greater than 200 systolic emergency department and is having chest pain. Patient was given nitroglycerin with improvement of his chest pain and his blood pressure. Initial troponin negative. EKG did not show evidence of STEMI. CT did not show evidence of acute intracranial hemorrhage. Patient felt comfortable with the plan for admission to the hospital for further care and evaluation.
[2018-08-28] MEDS: Nitroglycerin 0.4 MG TAB.SUBL SL PRN ×3 (15:31→17:06)
[2018-08-28 15:41] LABS: Basophils % 0.5 %; Eosinophils # 0.2 K/mcL (0.0-0.6); Eosinophils % 2.8 %; Hematocrit 42.2 % (37.5-50.1); Hemoglobin 14.8 g/dL (12.9-16.9); Immature Granulocytes % 1.1 % (0-4); Lymphocytes # 1.8 K/mcL (0.6-4.6); Lymphocytes % 23.5 %; Mean Corpuscular HGB Conc 35.1 g/dL (31.6-35.5); Mean Corpuscular Hemoglobin 28.7 pg (28.0-33.3); Mean Corpuscular Volume 81.9 fL (83.0-100.0); Mean Platelet Volume 9.4 fL (9.4-12.4); Monocytes # 0.8 K/mcL (0.0-1.3); Monocytes % 10.3 %; Neutrophils # 4.6 K/mcL (1.6-8.9); Platelet Count 217 K/mcL (140-400); Red Blood Count 5.15 M/mcL (4.19-5.50); Red Cell Distribution Width 13.2 % (11.5-14.5); Segmented Neutrophils % 61.8 %
[2018-08-28 15:57] LABS: Troponin I < 0.03 ng/mL (< 0.04)
[2018-08-28 16:16] LABS: BUN/Creatinine Ratio 16 (6-26); Blood Urea Nitrogen 12 mg/dL (6-20); Carbon Dioxide 23 mEq/L (23-29); Chloride 101 mEq/L (98-107); Glucose 200 mg/dL (70-105); Osmolality,Calculated 293 (280-300); Sodium 139 mEq/L (136-145); eGFR For Non-African Americans > 60 (> 60)
[2018-08-28] MEDS ORDERED: Potassium Chloride Elixir 20 MEQ/15 ML UDC PO STA (17:02)
[2018-08-28] MEDS ORDERED: Naloxone 0.4 MG/ML INJ IVP PRN (22:05)
[2018-08-28 23:09] LABS: Alanine Aminotransferase 22 Units/L (7-52); Albumin 3.9 g/dL (3.5-5.7); Albumin/Globulin Ratio 1.5 (1.1-2.2); Alkaline Phosphatase 103 Units/L (34-104); Aspartate Amino Transferase 15 Units/L (13-39); BUN/Creatinine Ratio 20 (6-26); Bilirubin,Total 0.5 mg/dL (0.3-1.0); Blood Urea Nitrogen 14 mg/dL (6-20); Calcium 8.9 mg/dL (8.6-10.3); Carbon Dioxide 29 mEq/L (23-29); Chloride 102 mEq/L (98-107); Globulin 2.6 g/dL (2.4-3.5); Glucose 194 mg/dL (70-105); Osmolality,Calculated 294 (280-300); Sodium 139 mEq/L (136-145); Total Protein 6.5 g/dL (6.4-8.9); eGFR For Non-African Americans > 60 (> 60)
[2018-08-28] MEDS: *HR* Heparin 5,000 UNIT/ML VIAL SQ SCH (23:12)
[2018-08-28] MEDS: *HR* OxyCODONE/APAP 5/325 TABLET PO PRN (23:12)
--- NOTE | 2018-08-29 00:35 | Internal Med History&Physical ---
Date of Encounter: 08/29/18 Time of Encounter: 00:32 Internal Medicine - H&P: HPI Chief complaint: Chest Pain History of present illness: Mr. Garcia is a 43 year old male with a past medical history of hypertension, hyperlipidemia, GERD that presents emergency Department with reports of chest pain and elevated blood pressure. Patient states for the past 2-3 days he has noted that his blood pressures been elevated. Patient is a blood pressure at home was in the upper 180s. Patient states that he was seen by Dr. Chani Navarro today recommended that he come to the emergency department. Patient reports that his blood pressure normally runs in the 160s. He otherwise states she has been compliant with his medications. Denies any increase in salt intake. Does report that he has been on ibuprofen 2 times a day for the past 2 weeks since his knee surgery and for recent migraine headaches. Patient also reports an episode of chest pain that occurred yesterday around 6 PM while the patient was sitting on the couch watching a football game. Pain was located substernal, pressure-like as if somebody was sitting on his chest, nonradiating. Patient states he became diaphoretic but denies any nausea, vomiting or lightheadedness. Patient states he fell asleep on the couch and woke up around 9 PM at which time the pain he states had eased off. He states that the next morning when he woke up the pain was still there. Patient does not smoke. He has a long-standing family history of possible sudden cardiac and relatives having MIs in their 30s. Patient also states that his brother had to have coronary bypass in his 40s. Patient states that he has had a previous catheterization that showed mild disease. On arrival patient's blood pressure w as found to be 191/121. His EKG and troponins were unremarkable. On my assessment patient was chest pain-free lying in bed in no acute distress. 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 Psychiatric history: anxiety - Past Surgical History Surgical History: appendectomy Additional surgical history: KIDNEY STONES, left knee - Social History Smoking Status: Never smoker Smokeless Tobacco Status: No Alcohol use: none Drug use: none - Family History Mother Living Status: Still Living Hx Family Cardiac Disorders: Yes Father Living Status: Still Living Hx Family Medical Disorders: Yes (PVD) Internal Medicine - H&P: Meds Albuterol Sulfate [Ventolin Hfa] 2 puff IH Q6H PRN 04/13/18 [History] Amlodipine Besylate 2.5 mg PO DAILY 04/13/18 [History] Atorvastatin Calcium [Lipitor] 20 mg PO QPM 04/13/18 [History] Ergocalciferol (VITAMIN D2) [Vitamin D2] 50,000 unit PO MOWEFR 04/13/18 [History] Fexofenadine/Pseudoephedrine [Mary-D 24 Hour Tablet] 1 each PO DAILY 04/13/18 [History] Gabapentin [Neurontin] 800 mg PO TID 04/13/18 [History] Lisinopril [Zestril] 40 mg PO DAILY 04/13/18 [History] Meloxicam 15 mg PO DAILY 04/13/18 [History] Metoprolol Tartrate [Lopressor] 25 mg PO BID 04/13/18 [History] Omeprazole [PriLOSEC] 40 mg PO BID 04/13/18 [History] Potassium Chloride [K-Tab ER] 20 meq PO DAILY 04/13/18 [History] Aspirin [Adult Aspirin] 81 mg PO DAILY 08/28/18 [History] Lidocaine Patch [Lidoderm 5% patch] 1 each TP DAILY 08/28/18 [History] Oxycodone HCl/Acetaminophen [Percocet 5-325 mg Tablet] 1 tab PO TID 08/28/18 [History] Allergy/AdvReac Type Severity Reaction Status Date / Time Amoxicillin Allergy Hives Verified 07/26/18 11:06 ampicillin Allergy Hives Verified 07/26/18 11:06 codeine Allergy Hives Verified 07/26/18 11:06 metformin Allergy See Verified 07/26/18 11:06 Comments Penicillins Allergy Hives Verified 07/26/18 11:06 hydrocodone AdvReac Nausea Verified 07/26/18 11:06 All Systems PM: A 10-system review of systems was performed and is negative for pertinent findings except as documented above in the HPI. - Constitutional Constitutional: no chills, no fever(s), no night sweats - EENT Eyes: no change in vision, no discharge, no pain, no photophobia Ears: no ear discharge, no ear pain, no tinnitus Nose, mouth and throat: no dysphagia, no nasal discharge, no neck pain, no sore throat - Cardiovascular Cardiovascular ROS IM: no chest pain, no diaphoresis, no dyspnea, no lightheadedness, no palpitations, no syncope - Respiratory Respiratory: no cough, no dyspnea, no wheezing, no excessive phlegm production - Gastrointestinal Gastrointestinal: no abdominal pain, no diarrhea, no hematemesis, no hematoch ezia, no melena, no nausea, no vomiting - Musculoskeletal Musculoskeletal ROS IM: no numbness, no tingling - Integumentary Integumentary IM: no rash, no unusual bruising - Neurological Neurological ROS: no confusion, no convulsions, no focal weakness, no numbness, no tingling, no tremor(s) - Hematologic/Lymphatic Hematologic/Lymphatic: no easy bruising - Constitutional Vitals: Temp Pulse Resp BP Pulse Ox 97.7 F 82 19 166/101 95 08/28/18 23:34 08/28/18 23:34 08/28/18 23:34 08/28/18 23:34 08/28/18 23:34 Exam: General: Alert and oriented 3 lying in bed in no acute distress Skin:Normal color, no rash, no lesions. HEENT:EOM, pupils equal, round and reactive. Cardiovascular:Normal S1 & S2, no rubs, murmurs or gallops. No JVD. Pulse regular. Lungs:Normal breath sounds, no wheezes or crackles. Abdomen:Soft, non-tender, no rigidity. Extremities:No deformity, no edema or tenderness, no joint swelling or clubbing. Neurological:Normal cognition and motor skills. Pulses:Carotid and radial pulses normal +2. Rest of the physical exam is non contributory Internal Med - H&P Results - Labs CBC & Chem 7: 08/29/18 04:17 08/28/18 22:24 Labs: Short CBC 08/28/18 Range/Units 15:20 WBC 7.5 (4.3-11.1) K/mcL Hgb 14.8 (12.9-16.9) g/dL Hct 42.2 (37.5-50.1) % Plt Count 217 (140-400) K/mcL Neutrophils # 4.6 (1.6-8.9) K/mcL BMP 08/28/18 08/28/18 15:20 22:24 Sodium 139 139 Potassium 3.0 L 3.0 L Chloride 101 102 Carbon Dioxide 23 29 BUN 12 14 Creatinine 0.74 0.69 L Glucose 200 H 194 H Calcium 9.0 8.9 Cardiac Enzymes 08/28/18 08/28/18 Range/Units 15:20 22:24 Troponin I < 0.03 < 0.03 (< 0.04) ng/mL Liver Function 08/28/18 Range/Units 22:24 Total Bilirubin 0.5 (0.3-1.0) mg/dL AST 15 (13-39) Units/L ALT 22 (7-52) Units/L Alkaline Phosphatase 103 (34-104) Units/L Albumin 3.9 (3.5-5.7) g/dL - Impressions ITS Impressions Chest X-Ray 08/28/18 15:12 IMPRESSION: No acute cardiopulmonary process identified. D/ / Brendan Knapp MD / Brendan Knapp MD Interpreting Provider: Brendan Knapp MD Head CT 08/28/18 15:38 IMPRESSION: No acute intracranial abnormality. D/ / Higinio Lamb MD / Higinio Lamb MD Interpreting Provider: Higinio Lamb MD - Assessment and plan (1) Chest pain Current Visit: Yes Status: Acute Assessment and plan: Patient presents with atypical chest pain described as substernal, pressure-like nonradiating occurring at rest in the setting of hypertensive urgency. Initial EKG and troponin was negative. Patient does have a significant family history. He reports previous left heart catheter which showed mild posterior disease. Patient follows with Dr. Navarro. At this time patient is chest pain-free. He received a loading dose of aspirin in the ED. -Telemetry -Trend troponin -We will obtain echocardiogram -Consider cardio consult of any acute changes. Otherwise, consider outpatient f ollow-up with his line walker for further evaluation. Qualifiers: Chest pain type: unspecified Qualified Code(s): R07.9 - Chest pain, unspecified (2) Hypertensive urgency Current Visit: Yes Status: Acute Assessment and plan: Patient initially presented with a blood pressure of 191/121. He received sublingual nitroglycerin and his blood pressure seems to have responded. Patient states that he is compliant with his medications. He is currently on metoprolol and amlodipine. Patient does report taking twice a day ibuprofen for both his recent history of migraines as well as for knee pain following recent orthoscopic knee surgery. I suspect that ibuprofen may be contributing to his hypertension addition to pain. -We will continue to monitor blood pressure -We will add hydralazine as needed -Hold NSAIDs (3) Hypokalemia Current Visit: Yes Status: Acute Assessment and plan: Mild hypokalemia of 3.0. No evidence of any EKG changes. We will replete (4) HTN (hypertension) Current Visit: No Status: Chronic Assessment and plan: See "hypertensive urgency" above -We will resume home antihypertensives. -Blood pressure medication may need to be adjusted prior to discharge Qualifiers: Hypertension type: essential hypertension Qualified Code(s): I10 - Essential (primary) hypertension (5) DVT prophylaxis Current Visit: Yes Status: Acute Assessment and plan: Subcutaneous heparin - Time Spent With Patient Total time spent is greater than 50% in coordination of care (as documented) at patient's floor/unit and/or counseling patient:
[2018-08-29] MEDS: *HR* Heparin 5,000 UNIT/ML VIAL SQ SCH ×3 (05:27→22:11)
[2018-08-29 05:39] LABS: Basophils # 0.1 K/mcL (0.0-0.2); Basophils % 0.7 %; Eosinophils # 0.2 K/mcL (0.0-0.6); Eosinophils % 3.5 %; Hematocrit 39.4 % (37.5-50.1); Hemoglobin 13.9 g/dL (12.9-16.9); Immature Granulocytes % 1.2 % (0-4); Lymphocytes # 2.1 K/mcL (0.6-4.6); Mean Corpuscular HGB Conc 35.3 g/dL (31.6-35.5); Mean Corpuscular Hemoglobin 28.9 pg (28.0-33.3); Mean Corpuscular Volume 81.9 fL (83.0-100.0); Mean Platelet Volume 9.6 fL (9.4-12.4); Monocytes # 0.9 K/mcL (0.0-1.3); Monocytes % 12.3 %; Neutrophils # 3.6 K/mcL (1.6-8.9); Platelet Count 216 K/mcL (140-400); Red Blood Count 4.81 M/mcL (4.19-5.50); Red Cell Distribution Width 13.2 % (11.5-14.5); Segmented Neutrophils % 51.3 %
[2018-08-29] MEDS: Aspirin Enteric Coated 81 MG Tablet PO SCH (08:07)
[2018-08-29] MEDS: Gabapentin 400 MG CAPSULE PO SCH ×3 (08:07→22:11)
[2018-08-29] MEDS: Lisinopril 20 MG TABLET PO SCH (08:07)
[2018-08-29] MEDS ORDERED: *HR* OxyCODONE/APAP 5/325 TABLET PO SCH (09:00)
[2018-08-29] MEDS ORDERED: amLODIPine 5 MG TABLET PO SCH (09:00)
[2018-08-29] MEDS: *HR* OxyCODONE/APAP 5/325 TABLET PO PRN (12:05)
[2018-08-29] MEDS ORDERED: amLODIPine 5 MG TABLET PO ONE (14:13)
[2018-08-29] MEDS ORDERED: Perflutren Lipid Microsphere 1.3 ML in 0.9 % Sodium Chloride 8.7 ML IVP ONE (14:26)
--- NOTE | 2018-08-29 14:44 | Event Note ---
Date of Encounter: 08/29/18 Time of Encounter: 14:39 Pt seen after midnight Pt admitted for hypertensive urgency. Home meds resumed and Hydralazine PRN ordered. Pt reported having chest pain as well. Currently denies having chest pain or SOB. Troponin negative time 3. He ports significant family history of heart disease. Grand mother had 15 children and 10 of the children from heart disease related issues. His brother had IL at 44 and father has hx cad/pvd as well. Will order nuclear stress test and Echo currently being done. Will increase Norvasc from 2.5 mg to 10 mg PO daily and Metoprolol from 25 mg BID to 5o mg BID. Will resume pt's lisinopirl 40 mg PO daily. Will continue Hydralazine PRN as well. If persists will consider place on IV BP lowering med or nitro gtt.
[2018-08-29] MEDS ORDERED: Ondansetron 4 MG/2 ML VIAL IVP PRN (15:52)
[2018-08-29] MEDS: Acetaminophen 325 MG TABLET PO PRN (17:20)
--- NOTE | 2018-08-29 17:56 | Electrocardiograph Report ---
[address] [place], [place] [address] Test Date: 2018-08-28 Pat Name: Doe Garcia Department: [id number] Room: 3B37 Gender: M Data Processing Supervisor: : 1975 Requested By: Aleksey Valencia Order Number: [id number] Reading MD: Chani Navarro Measurements Intervals [place] Rate: 82 P: 19 MA: 157 QRS: 4 QRSD: 91 T: 4 QT: 355 QTc: 415 Interpretive Statements Sinus rhythm Left ventricular hypertrophy Electronically Signed On 08-29-2018 17:54:54 EST by Chani Navarro
[2018-08-29] MEDS ORDERED: Ketorolac 30 MG/ML VIAL IM ONE (18:44)
[2018-08-29] MEDS ORDERED: *HR* Promethazine 25 MG/ML VIAL ONE (18:45)
[2018-08-29] MEDS ORDERED: Ketorolac 30 MG/ML VIAL IVP ONE (18:49)
[2018-08-29] MEDS: *HR* Promethazine 25 MG/ML VIAL IVP PRN ×2 (18:51→18:54)
[2018-08-29] MEDS ORDERED: Prochlorperazine 10 MG/2 ML VIAL IVP PRN (19:26)
[2018-08-29] MEDS ORDERED: Ketorolac 15 MG/ML VIAL IVP ONE (19:26)
[2018-08-29] MEDS ORDERED: cloNIDine HCl 0.1 MG TABLET PO ONE (19:28)
[2018-08-29] MEDS: niCARdipine 40 MG/200 ML MLS IVC SCH (22:57)
[2018-08-30] MEDS: niCARdipine 40 MG/200 ML MLS IVC SCH (02:58)
[2018-08-30] MEDS: *HR* Heparin 5,000 UNIT/ML VIAL SQ SCH ×3 (04:57→21:20)
[2018-08-30] MEDS ORDERED: Regadenoson 0.4 MG/5 ML SYRINGE IVP ONE (06:09)
[2018-08-30] MEDS: amLODIPine 5 MG TABLET PO SCH (10:26)
[2018-08-30] MEDS: Aspirin Enteric Coated 81 MG Tablet PO SCH (10:26)
[2018-08-30] MEDS: Lisinopril 20 MG TABLET PO SCH (10:26)
[2018-08-30] MEDS: Gabapentin 400 MG CAPSULE PO SCH ×3 (10:26→21:20)
--- NOTE | 2018-08-30 12:51 | Neurology - Consult Note ---
Date of Encounter: 08/30/18 Time of Encounter: 12:45 Assessment and Plan (1) Vascular headache Current Visit: Yes Status: Acute These are likely vascular headaches secondary to uncontrolled HTN. Been having elevated BP per history and the headaches tend to be throbbing, occuring at evening hours and these can certainly mimic migraines due to coexisting nausea and vomiting and light sensitivity that can occur with elevated BP. The severity of his headaches seem to correlate with BP so at this time would recommend medical treatment. Treatment for such vascular headaches is largely symptomatic toward underlying medical condition, which so far appeared effective. I see no evidence of FORENSIC ENGINEER infection, subarachnoid hemorrhage or intracranial abnormalities. Please continue medical and supportive care. Will sign off at this time. Please call if any questions History of Present Illness Chief complaint: headache, elevated BP and chest pain HPI: Mr. Garcia is a 43 year old male with PMH significant for HTN, SHRAVAN on CPAP, obesity who presented to his cardiologistwith chest pain, severe headaches and found to have significantly elevated blood pressure. Patient states that he has been experiencing what he called 'migraines' since the last few months, almost on every other day basis. The headaches tend to occur evening hours and they can be quite severe. In the morning he usually does not have headaches. In the evening hours he has these frontal headaches, behind or around his eyes and they can be associated with significant nausea and light sensitivity. Been found to have elevated BP, running normally at 160/104 mmHg. He was recommended by Dr. Navarro his community administrator to come to ER and he was admitted for hypertensive urgency with systolic BP more than 200. Initial CT of head was reported normal study. Patient currently is doing better in terms of headache intensitiy although he still has mild pressure to the left eye. No other neurological complaints. 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 Psychiatric history: anxiety - Past Surgical History Surgical History: appendectomy Additional surgical history: KIDNEY STONES, left knee - Social History Smoking Status: Never smoker Smokeless Tobacco Status: No Alcohol use: none Drug use: none - Family History Mother Living Status: Still Living Hx Family Cardiac Disorders: Yes Father Living Status: Still Living Hx Family Medical Disorders: Yes (PVD) Medications and Allergies Albuterol Sulfate [Ventolin Hfa] 2 puff IH Q6H PRN 04/13/18 [History] Amlodipine Besylate 2.5 mg PO DAILY 04/13/18 [History] Atorvastatin Calcium [Lipitor] 20 mg PO QPM 04/13/18 [History] Ergocalciferol (VITAMIN D2) [Vitamin D2] 50,000 unit PO MOWEFR 04/13/18 [History] Fexofenadine/Pseudoephedrine [Mary-D 24 Hour Tablet] 1 each PO DAILY 04/13/18 [History] Gabapentin [Neurontin] 800 mg PO TID 04/13/18 [History] Lisinopril [Zestril] 40 mg PO DAILY 04/13/18 [History] Meloxicam 15 mg PO DAILY 04/13/18 [History] Metoprolol Tartrate [Lopressor] 25 mg PO BID 04/13/18 [History] Omeprazole [PriLOSEC] 40 mg PO BID 04/13/18 [History] Potassium Chloride [K-Tab ER] 20 meq PO DAILY 04/13/18 [History] Aspirin [Adult Aspirin] 81 mg PO DAILY 08/28/18 [History] Lidocaine Patch [Lidoderm 5% patch] 1 each TP DAILY 08/28/18 [History] Oxycodone HCl/Acetaminophen [Percocet 5-325 mg Tablet] 1 tab PO TID 08/28/18 [ History] Allergy/AdvReac Type Severity Reaction Status Date / Time Amoxicillin Allergy Hives Verified 07/26/18 11:06 ampicillin Allergy Hives Verified 07/26/18 11:06 codeine Allergy Hives Verified 07/26/18 11:06 metformin Allergy See Verified 07/26/18 11:06 Comments Penicillins Allergy Hives Verified 07/26/18 11:06 hydrocodone AdvReac Nausea Verified 07/26/18 11:06 All Systems: The remainder of the systems were reviewed and are negative Physical Examination - Vital Signs Vital Signs: Initial Vital Signs Temp Pulse Resp BP Pulse Ox 98.7 F 81 16 191/121 98 08/28/18 14:52 08/28/18 14:52 08/28/18 14:52 08/28/18 14:52 08/28/18 14:52 - Constitutional General appearance: comfortable - Neurologic Detailed motor examination: full strength in all major muscle groups Motor examination - right side: 5/5: deltoids, biceps, triceps, wrist flexion, wrist extension, loss claim clerk, hip flexors, tibialis Anterior, quadriceps, toe extension (EHL), plantarflexion Motor examination - left side: 5/5: deltoids, biceps, triceps, wrist flexion, wrist extension, hip flexors, loss claim clerk, quadriceps, tibialis Anterior, toe extension (EHL), plantarflexion Detailed sensory examination: intact Posture: other (None) Reflex and gait examination: intact Reflexes: Biceps: 2+, Triceps: 2+, Brachioradialis: 2+, Patella: 2+, Achilles: 2+ Mental Status Examination: awake, alert, oriented to person, oriented to place, oriented to time, follows commands appropriately, answers questions ap propriately, no agnosia, no aphasia, no aproxia Cranial nerve examination: PERRL, EOMI, visual almeida intact, corneal reflexes brisk symmetrically, sensory to face intact, mastication intact, no facial asymmetry is present, no dysarthria, hearing is intact symmetrically, soft palate elevates bilaterally upon phonation, gag reflex intact, flexes SCM and trapezius muscles symmetrically with full power, tongue protrudes midline, no atrophy or facial fasiculations present Cerebellar examination: no dysmetria, performs finger to nose and heel to grant symmetrically without ataxia, no gait ataxia, no truncal ataxia, no difficulty with rapid alternating movements Results - Laboratory Findings CBC and BMP: 08/29/18 04:17 08/28/18 22:24 Abnormal lab findings: Abnormal lab results MCV 81.9 fL (83.0-100.0) L 08/29/18 04:17 Potassium 3.0 mEq/L (3.5-5.1) L 08/28/18 22:24 Creatinine 0.69 mg/dL (0.70-1.30) L 08/28/18 22:24 Glucose 194 mg/dL (70-105) H 08/28/18 22:24 POC Glucose 122 mg/dL (70-99) H 08/28/18 20:42 - Diagnostic Findings Additional findings: EXAMINATION: CT OF THE HEAD WITHOUT CONTRAST 08/28/2018 4:22 pm TECHNIQUE: CT of the head was performed without the administration of intravenous contrast. Dose modulation, iterative reconstruction, and/or weight based adjustment of the mA/kV was utilized to reduce the radiation dose to as low as reasonably achievable. COMPARISON: 03/30/2015 HISTORY: ORDERING SYSTEM PROVIDED HISTORY: Headache. HTN FINDINGS: BRAIN/VENTRICLES: There is no acute intracranial hemorrhage, mass effect or midline shift. No abnormal extra-axial fluid collection. The aguilera-white differentiation is maintained without evidence of an acute infarct. There is no evidence of hydrocephalus. ORBITS: The visualized portion of the orbits demonstrate no acute abnormality. SINUSES: The visualized paranasal sinuses and mastoid air cells demonstrate no acute abnormality. SOFT TISSUES/SKULL: No acute abnormality of the visualized skull or soft tissues. CT/CT head/brain wo con IMPRESSION: No acute intracranial abnormality. D/ / Higinio Lamb MD / Higinio Lamb MD Interpreting Provider: Higinio Lamb MD Consult Discharge Plan - Plan Referrals: Deann Tan CNP [Primary Care Provider] - 09/05/18 11:00 am () Alyssa Garza DO [Partnered Physician] - (office will call patient at home with follow up appointment)
[2018-08-30 13:43] LABS: Basophils % 0.2 %; Eosinophils # 0.1 K/mcL (0.0-0.6); Eosinophils % 0.4 %; Hematocrit 43.2 % (37.5-50.1); Hemoglobin 15.1 g/dL (12.9-16.9); Lymphocytes % 11.5 %; Mean Corpuscular Hemoglobin 28.9 pg (28.0-33.3); Mean Corpuscular Volume 82.8 fL (83.0-100.0); Mean Platelet Volume 9.6 fL (9.4-12.4); Monocytes # 1.9 K/mcL (0.0-1.3); Platelet Count 342 K/mcL (140-400); Red Blood Count 5.22 M/mcL (4.19-5.50); Red Cell Distribution Width 13.4 % (11.5-14.5); Segmented Neutrophils % 75.9 %
[2018-08-30 13:47] LABS: Neutrophils # 13.4 K/mcL (1.6-8.9)
[2018-08-30 14:09] LABS: Estimated Average Glucose 166 mg/dl; Hemoglobin A1C 7.4 %
[2018-08-30] MEDS: Acetaminophen 325 MG TABLET PO PRN (14:38)
--- NOTE | 2018-08-30 15:50 | Internal Med Progress Note ---
Hospitalist Progress Note - Encounter Date of Encounter: 08/30/18 Time of Encounter: 09:00 - Subjective Interval History: Patient laying on bed comfortably. Complain mild headache on the forehead area, improved after pain medication. Vitals are stable. Denies chest pain or shortness of breath. - Exam Vitals: Temp Pulse Resp BP Pulse Ox 98.3 F 98 18 122/79 95 08/30/18 11:45 08/30/18 11:45 08/30/18 11:45 08/30/18 11:45 08/30/18 11:45 Exam: General: Alert and oriented 3 lying in bed in no acute distress Skin:Normal color, no rash, no lesions. HEENT:EOM, pupils equal, round and reactive. Cardiovascular:Normal S1 & S2, no rubs, murmurs or gallops. No JVD. Pulse regular. Lungs:Normal breath sounds, no wheezes or crackles. Abdomen:Soft, non-tender, no rigidity. Extremities:No deformity, no edema or tenderness, no joint swelling or clubbing. Neurological:Normal cognition and motor skills. Pulses:Carotid and radial pulses normal +2. Rest of the physical exam is non contributory - Assessment and Plan (1) HTN (hypertension) Current Visit: No Status: Chronic Assessment and Plan: Improved after medication adjustment. SBP 105-122 level today (2) Chest pain Current Visit: Yes Status: Acute Assessment and Plan: Intermittent chest pain. Pain-free right now. Strong family history of CAD. - 3 sets of troponin negative - Had nuclear stress test that today, will finish tomorrow. - Education for control hypertension, hyperlipidemia, and hyperglycemia has been done at the bedside. (3) DVT prophylaxis Current Visit: Yes Status: Acute Assessment and Plan: Subcutaneous heparin (4) Vascular headache Current Visit: Yes Status: Acute Assessment and Plan: Improved the headache after hypertension has improved. Neurology consult appreciated. Recommend continue symptomatic treatment. (5) DMII (diabetes mellitus, type 2) Current Visit: No Status: Chronic Assessment and Plan: Patient has a history of diabetes, on metformin previously, however patient cannot tolerate metformin because of diarrhea. - Continue diet control - Hemoglobin A1c 7.4 - Place patient on Januvia 100 mg by mouth daily - Continue closely outpatient follow-up (6) Morbid obesity with BMI of 40.0-44.9, adult Current Visit: No Status: Chronic Assessment and Plan: Patient will benefit from lifestyle modification as outpatient (7) Leukocytosis Current Visit: Yes Status: Acute Assessment and Plan: WBC 17.6K, neutrophils dominated. Patient has no signs of infection. Most likely reactive. Will closely monitor patient and repeat CBC in a.m. DVT Prophylaxis: Heparin subcutaneously - Time Spent with Patient Total time spent is greater than 50% in coordination of care (as documented) at patient's floor/unit and/or counseling patient: 30 minutes 25 - 35 minutes Plan of Care Discussed with: patient Internal Medicine: Result - Labs CBC & Chem 7: 08/30/18 13:21 08/28/18 22:24 Labs: Short CBC 08/30/18 Range/Units 13:21 WBC 17.6 H D (4.3-11.1) K/mcL Hgb 15.1 (12.9-16.9) g/dL Hct 43.2 (37.5-50.1) % Plt Count 342 D (140-400) K/mcL Neutrophils # 13.4 H (1.6-8.9) K/mcL Cardiac Enzymes 08/29/18 08/30/18 Range/Units 20:12 02:44 Troponin I < 0.03 < 0.03 (< 0.04) ng/mL - Impressions Impressions Echocardiogram 08/29/18 14:00 Impressions: LVEF 65%. Mild concentric left ventricular hypertrophy. Indeterminate diastolic function. Definity echo contrast was used. No significant valvular dysfunction. No pulmonary hypertension. Left Ventricular Wall Motion: Rest Echo Findings All wall segments showed normal motion. Findings: Study Quality * Technically challenging due to body habitus. ECG Findings * Sinus tachycardia. Left Ventricle * LVEF 65%. * Mild concentric left ventricular hypertrophy. * Indeterminate diastolic function. * Definity echo contrast was used. Right Ventricle * Normal right ventricular structure and function. Left Atrium * Normal left atrial size. Right Atrium * Normal right atrial size. Aortic Valve * Aortic valve not well visualized. * No aortic stenosis. * No aortic regurgitation. Mitral Valve * No mitral regurgitation. * Mitral valve not well visualized. * No mitral stenosis. Tricuspid Valve * Tricuspid valve not well visualized. * Trace tricuspid regurgitation. Pulmonic Valve * Pulmonic valve is not well visualized. * No pulmonic stenosis. * No pulmonic regurgitation. Pulmonary Artery * Pulmonary artery not well visualized. Aorta * Normally sized aortic root. Pericardium * There is no pericardial effusion present. Interatrial Septum * Interatrial septum not well evaluated. IVC * The IVC is not well evaluated. Head CT 08/29/18 19:14 IMPRESSION: No acute intracranial abnormality. D/ / Loki Powers MD / Loki Powers MD Interpreting Provider: Loki Powers MD Consult Discharge Plan - Plan Referrals: Deann Tan CNP [Primary Care Provider] - 09/05/18 11:00 am () Alyssa Garza DO [Partnered Physician] - (office will call patient at home with follow up appointment) (1) HTN (hypertension) Qualifiers: Hypertension type: essential hypertension Qualified Code(s): I10 - Essential (primary) hypertension (2) Chest pain Qualifiers: Chest pain type: unspecified Qualified Code(s): R07.9 - Chest pain, unspecified (5) DMII (diabetes mellitus, type 2) Qualifiers: Diabetes mellitus termite inspector insulin use: without termite inspector use Diabetes mellitus complication status: without complication Qualified Code(s): E11.9 - Type 2 diabetes mellitus without complications (7) Leukocytosis Qualifiers: Leukocytosis type: leukemoid reaction Qualified Code(s): D72.823 - Leukemoid reaction
[2018-08-30] MEDS: *HR* SitaGLIPtin 100 MG TABLET PO SCH (16:31)
[2018-08-30] MEDS: *HR* OxyCODONE/APAP 5/325 TABLET PO PRN (16:31)
[2018-08-30 17:15] LABS: BUN/Creatinine Ratio 19 (6-26); Blood Urea Nitrogen 26 mg/dL (6-20); Calcium 9.7 mg/dL (8.6-10.3); Carbon Dioxide 25 mEq/L (23-29); Chloride 99 mEq/L (98-107); Glucose 226 mg/dL (70-105); Osmolality,Calculated 298 (280-300); Potassium 3.3 mEq/L (3.5-5.1); Sodium 138 mEq/L (136-145); eGFR For Non-African Americans 58 (> 60)
[2018-08-31 03:43] VITALS: BP 143/83
[2018-08-31] MEDS: *HR* OxyCODONE/APAP 5/325 TABLET PO PRN (04:28)
[2018-08-31] MEDS: *HR* Heparin 5,000 UNIT/ML VIAL SQ SCH (05:30)
[2018-08-31 05:35] LABS: Basophils # 0.1 K/mcL (0.0-0.2); Basophils % 0.5 %; Eosinophils # 0.2 K/mcL (0.0-0.6); Eosinophils % 2.1 %; Hematocrit 40.7 % (37.5-50.1); Immature Granulocytes % 1.1 % (0-4); Lymphocytes # 3.1 K/mcL (0.6-4.6); Lymphocytes % 29.1 %; Mean Corpuscular HGB Conc 34.4 g/dL (31.6-35.5); Mean Corpuscular Hemoglobin 28.7 pg (28.0-33.3); Mean Corpuscular Volume 83.6 fL (83.0-100.0); Mean Platelet Volume 9.7 fL (9.4-12.4); Monocytes # 1.1 K/mcL (0.0-1.3); Monocytes % 10.6 %; Platelet Count 243 K/mcL (140-400); Red Blood Count 4.87 M/mcL (4.19-5.50); Red Cell Distribution Width 13.7 % (11.5-14.5); Segmented Neutrophils % 56.6 %
[2018-08-31 06:42] LABS: BUN/Creatinine Ratio 28 (6-26); Blood Urea Nitrogen 27 mg/dL (6-20); Calcium 9.1 mg/dL (8.6-10.3); Carbon Dioxide 24 mEq/L (23-29); Chloride 102 mEq/L (98-107); Glucose 213 mg/dL (70-105); Osmolality,Calculated 295 (280-300); Potassium 3.2 mEq/L (3.5-5.1); Sodium 137 mEq/L (136-145); eGFR For Non-African Americans > 60 (> 60)
[2018-08-31] MEDS: Lisinopril 20 MG TABLET PO SCH (08:31)
[2018-08-31] MEDS: Gabapentin 400 MG CAPSULE PO SCH (08:31)
[2018-08-31] MEDS: amLODIPine 5 MG TABLET PO SCH (08:32)
[2018-08-31] MEDS: *HR* SitaGLIPtin 100 MG TABLET PO SCH (08:32)
[2018-08-31] MEDS: Aspirin Enteric Coated 81 MG Tablet PO SCH (08:32)
--- NOTE | 2018-08-31 11:03 | Discharge Summary ---
- NOTES TO OUTPATIENT PROVIDER Notes to Outpatient Provider: 1. Closely follow up with PCP, new medication: Metoprolol 75mg bid, Amlodipine 10mg qd, keep lisinipril 40mg qd. Add Januvia 100mg po daily for DM. Orders not resulted at time of discharge: Pending orders 08/29/18 06:00 ECG 12 lead ECG [ECG] AM 0600 08/30/18 07:00 NM cherelle perf SPECT multi [NM] Routine Date of Encounter: 08/31/18 Time of Encounter: 09:00 - Discharge Diagnosis (1) HTN (hypertension) Priority: Primary Status: Chronic Qualifiers: Hypertension type: essential hypertension Qualified Code(s): I10 - Essential (primary) hypertension (2) Chest pain Priority: Primary Status: Acute Qualifiers: Chest pain type: unspecified Qualified Code(s): R07.9 - Chest pain, unspecified (3) DVT prophylaxis Priority: Secondary Status: Acute (4) Vascular headache Priority: Primary Status: Acute (5) DMII (diabetes mellitus, type 2) Priority: Secondary Status: Chronic Qualifiers: Diabetes mellitus chcf insulin use: without chcf use Diabetes mellitus complication status: without complication Qualified Code(s): E11.9 - Type 2 diabetes mellitus without complications (6) Morbid obesity with BMI of 40.0-44.9, adult Priority: Secondary Status: Chronic (7) Leukocytosis Priority: Secondary Status: Acute Qualifiers: Leukocytosis type: leukemoid reaction Qualified Code(s): D72.823 - Leukemoid reaction Hospital course: Mr. Garcia is a 43 year old male presented to ER for chest pain. Patient was also found blood pressure high to 190s. Patient was admitted for chest pain rule out and hypertensive urgency. Patient was placed on continuous cardiac monitoring. 3 sets of troponin negative. Echocardiogram unremarkable. Nuclear stress test negative for ischemia. Patient's chest pain is intermittent and chest pain-free for last 2 days. Patient to complain of mild headache, which has improved after hypertension has been controlled. Neurology saw patient, recommended symptomatic treatment. Patient's BP is well controlled after medication adjustment. Patient will DC home today, continue follow-up with PCP as outpatient. Also prescribed Januvia for his diabetes as he is off medication because of the intolerance to metformin. I have seen and examined the patient today. Denies chest pain, denies headache. Vitals are stable. Stable to discharge home. Prescription for new medication was given to patient. Discharge discussed with: patient - Time Spent with Patient Total time spent providing and/or coordinating discharge services: 25 minutes Less than 30 minutes - Discharge Medications Prescriptions: amLODIPine [Norvasc] 10 mg PO DAILY 30 Days #60 tablet Metoprolol [Lopressor] 75 mg PO BID 30 Days #90 tablet SitaGLIPtin [Januvia] 100 mg PO DAILY 30 Days #30 tablet Home Medications: Albuterol Sulfate [Ventolin Hfa] 2 puff IH Q6H PRN 04/13/18 [History] Amlodipine Besylate 2.5 mg PO DAILY 04/13/18 [History] Atorvastatin Calcium [Lipitor] 20 mg PO QPM 04/13/18 [History] Ergocalciferol (VITAMIN D2) [Vitamin D2] 50,000 unit PO MOWEFR 04/13/18 [History] Fexofenadine/Pseudoephedrine [Mary-D 24 Hour Tablet] 1 each PO DAILY 04/13/18 [History] Gabapentin [Neurontin] 800 mg PO TID 04/13/18 [History] Lisinopril [Zestril] 40 mg PO DAILY 04/13/18 [History] Meloxicam 15 mg PO DAILY 04/13/18 [History] Metoprolol Tartrate [Lopressor] 25 mg PO BID 04/13/18 [History] Omeprazole [PriLOSEC] 40 mg PO BID 04/13/18 [History] Potassium Chloride [K-Tab ER] 20 meq PO DAILY 04/13/18 [History] Aspirin [Adult Aspirin] 81 mg PO DAILY 08/28/18 [History] Lidocaine Patch [Lidoderm 5% patch] 1 each TP DAILY 08/28/18 [History] Oxycodone HCl/Acetaminophen [Percocet 5-325 mg Tablet] 1 tab PO TID 08/28/18 [History] Metoprolol [Lopressor] 75 mg PO BID 30 Days #90 tablet 08/31/18 [Rx] SitaGLIPtin [Januvia] 100 mg PO DAILY 30 Days #30 tablet 08/31/18 [Rx] amLODIPine [Norvasc] 10 mg PO DAILY 30 Days #60 tablet 08/31/18 [Rx] Allergies/Adverse Reactions: Allergy/AdvReac Type Severity Reaction Status Date / Time Amoxicillin Allergy Hives Verified 07/26/18 11:06 ampicillin Allergy Hives Verified 07/26/18 11:06 codeine Allergy Hives Verified 07/26/18 11:06 metformin Allergy See Verified 07/26/18 11:06 Comments Penicillins Allergy Hives Verified 07/26/18 11:06 hydrocodone AdvReac Nausea Verified 07/26/18 11:06 Date of admission: 08/28/18 18:16 Primary care physician: Deann Tan CNP Consults: 08/29/18 19:35 Consult to Neurology [CONS] Routine Consulting Provider: Neurology [facility] Reason for Consult: Headache Call Completed: Yes Discharging clinician: Teo Teran Anticipated date of discharge: 08/31/18 - Constitutional Vitals: Temp Pulse Resp BP Pulse Ox 97.7 F 97 17 143/83 92 08/31/18 03:39 08/31/18 03:39 08/31/18 03:39 08/31/18 03:39 08/31/18 03:39 Exam: General: Alert and oriented 3 lying in bed in no acute distress Skin:Normal color, no rash, no lesions. HEENT:EOM, pupils equal, round and reactive. Cardiovascular:Normal S1 & S2, no rubs, murmurs or gallops. No JVD. Pulse regular. Lungs:Normal breath sounds, no wheezes or crackles. Abdomen:Soft, non-tender, no rigidity. Extremities:No deformity, no edema or tenderness, no joint swelling or clubbing. Neurological:Normal cognition and motor skills. Pulses:Carotid and radial pulses normal +2. Rest of the physical exam is non contributory - Patient Status Disposition: Home, Self-Care Condition: Good Functional capacity at discharge: independent ambulation Overall status at discharge: patient is back to baseline - Discharge Instructions Follow Up With: Deann Tan CNP [Primary Care Provider] - 09/05/18 11:00 am () Alyssa Garza DO [Partnered Physician] - (office will call patient at home with follow up appointment) - Diet and Activity Activity: resume usual activities as tolerated Diet: diabetic diet, low fat, low cholesterol, low salt diet
--- NOTE | 2018-08-31 17:27 | Electrocardiograph Report ---
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
== END 2018-08-31 13:05 | disposition home or self-care (01) ==
LOC: 3BNU 14:47 → EMEROOARM 14:47 → 3BNU 19:30 → 2NNU 08-29 22:53 → 3ANU 08-30 16:18
PROVIDERS: ADMIT Internal Medicine; ATTEND Internal Medicine

== ENCOUNTER 2018-11-23 14:58 | Inpatient (IN) ==
--- NOTE | 2018-11-23 15:02 | Urology History & Physical ---
Date of Encounter: 11/23/18 Time of Encounter: 15:00 Assessment and Plan (1) Flank pain Status: Acute Secondary to ureteral calculus. Plan: Pain meds. Nothing by mouth after midnight. Surgical intervention tomorrow p.m. (2) Tachycardia Status: Acute Medical management per internal medicine consultation. Plan: Consult hospitalist (3) Kidney stone on left side Status: Acute Intractable pain, nausea, diaphoresis secondary to 2 mm left midureteral stone with mild hydronephrosis. No white count. Normal renal function. Urine without signs of UTI. No fever. Plan: Pain meds. Nothing by mouth post midnight. Surgical intervention tomorrow p.m. (4) HTN (hypertension) Status: Chronic Will ask internal medicine to evaluate. Plan: Hospitalist consult Qualifiers: Hypertension type: unspecified Qualified Code(s): I10 - Essential (primary) hypertension History of Present Illness Chief complaint: Left ureteral calculus HPI: Mr. Garcia is a 43 year old male who has intractable pain secondary to a 2 mm mid left ureteral calculus with mild hydronephrosis. Of additional concern is the patient's presentation with diaphoresis blood pressure 170/100 and pulse of 112. His evaluation and emergent department early this morning revealed a normal white count, no signs of UTI, no fever and normal renal function. Due to intractable pain and abnormal findings the patient is being admitted for pain control. He will be added on to the Tuesday p.m. surgery schedule for ureteroscopy holmium laser lithotripsy. We will ask the internal medicine service to evaluate his medical status. 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 Psychiatric history: anxiety - Past Surgical History Surgical History: appendectomy Additional surgical history: KIDNEY STONES, left knee - Social History Smoking Status: Never smoker Smokeless Tobacco Status: No Alcohol use: none Drug use: none - Family History Mother Living Status: Still Living Hx Family Cardiac Disorders: Yes Father Living Status: Still Living Medications and Allergies Albuterol Sulfate [Ventolin Hfa] 2 puff IH Q6H PRN 04/13/18 [History] Amlodipine Besylate 2.5 mg PO DAILY 04/13/18 [History] Atorvastatin Calcium [Lipitor] 20 mg PO QPM 04/13/18 [History] Ergocalciferol (VITAMIN D2) [Vitamin D2] 50,000 unit PO MOWEFR 04/13/18 [History] Fexofenadine/Pseudoephedrine [Mary-D 24 Hour Tablet] 1 each PO DAILY 04/13/18 [History] Gabapentin [Neurontin] 800 mg PO TID 04/13/18 [History] Lisinopril [Zestril] 40 mg PO DAILY 04/13/18 [History] Meloxicam 15 mg PO DAILY 04/13/18 [History] Metoprolol Tartrate [Lopressor] 25 mg PO BID 04/13/18 [History] Omeprazole [PriLOSEC] 40 mg PO BID 04/13/18 [History] Potassium Chloride [K-Tab ER] 20 meq PO DAILY 04/13/18 [History] Aspirin [Adult Aspirin] 81 mg PO DAILY 08/28/18 [History] Lidocaine Patch [Lidoderm 5% patch] 1 each TP DAILY 08/28/18 [History] Oxycodone HCl/Acetaminophen [Percocet 5-325 mg Tablet] 1 tab PO TID 08/28/18 [History] Ondansetron ODT [Zofran ODT] 4 mg SL Q6HR PRN #12 tab.rapdis 11/23/18 [Rx] OxyCODONE/APAP 5/325 [Percocet 5/325 MG] 1 each PO Q6HR PRN 3 Days #12 tablet 11/23/18 [Rx] Allergy/AdvReac Type Severity Reaction Status Date / Time Amoxicillin Allergy Hives Verified 07/26/18 11:06 ampicillin Allergy Hives Verified 07/26/18 11:06 codeine Allergy Hives Verified 07/26/18 11:06 metformin Allergy See Verified 07/26/18 11:06 Comments Penicillins Allergy Hives Verified 07/26/18 11:06 hydrocodone AdvReac Nausea Verified 07/26/18 11:06 Review of Systems - Constitutional fever(s), no chills - EENT Nose, mouth and throat: no dizziness, no headache(s) - Cardiovascular diaphoresis, no chest pain - Respiratory no cough, no dyspnea - Gastrointestinal abdominal pain, nausea - Genitourinary flank pain, no urinary frequency - Musculoskeletal back pain, no muscle weakness - Integumentary no erythema, no rash - Neurological no confusion, no sensory deficit - Psychiatric no anxiety, no confusion - Hematologic/Lymphatic no easy bleeding, no easy bruising - Allergic/Immunologic no throat swelling, no wheezing Exam - General physical appearance Present: well developed, well nourished, severe pain - Eyes Present: PERRL, normal ocular movement - ENT Present: normal nares, normal mucosa - Neck Present: trachea midline - Respiratory Present: normal respiratory effort - Cardiovascular Cardiovascular exam IM: RRR - Abdomen Abdomen: Present: soft, non tender - Integumentary Present: no rash, no growths - Neurologic Present: normal coordination - Musculoskeletal Present: normal gait Urology Results - Labs All other labs normal. - Imaging CT scan - abdomen: image reviewed CT scan - pelvis: image reviewed
[2018-11-23] MEDS ORDERED: Naloxone 0.4 MG/ML INJ IVP PRN (15:09)
[2018-11-23] MEDS ORDERED: *HR* OxyCODONE Immed Rel 5 MG TABLET PO PRN (15:09)
[2018-11-23] MEDS ORDERED: Ondansetron 4 MG/2 ML VIAL IVP PRN (15:09)
[2018-11-23] MEDS ORDERED: D5% in Water 1,000 ML IVC PRN (16:26)
[2018-11-23] MEDS ORDERED: *HR* Dextrose 50 % in Water (Syg) 50 ML SYRINGE IVP PRN (16:26)
[2018-11-23] MEDS ORDERED: Dextrose Gel 15 GM/37.5 ML TUBE PO PRN ×2 (16:26)
[2018-11-23] MEDS ORDERED: Ipratropium/Albuterol Neb 3 ML IH PRN (16:28)
--- NOTE | 2018-11-23 16:35 | Internal Medicine Consult Note ---
Date of Encounter: 11/23/18 Time of Encounter: 16:29 - Assessment and Plan (1) Kidney stone on left side Current Visit: Yes Status: Acute Assessment and plan: CT abdomen showed 2 mm left ureteral calculus with mild left hydronephrosis. IV antibiotics and IV fluid started by urology. Continue pain control. Procedure scheduled tomorrow per urology. (2) Arthritis of knee, left Current Visit: No Status: Chronic Assessment and plan: Continue home pain medications. (3) HTN (hypertension) Current Visit: No Status: Chronic Assessment and plan: We will resume home medications once verified, started when necessary hydralazine. Qualifiers: Hypertension type: unspecified Qualified Code(s): I10 - Essential (primary) hypertension (4) DMII (diabetes mellitus, type 2) Current Visit: No Status: Chronic Assessment and plan: Start patient on insulin sliding scale. Qualifiers: Diabetes mellitus jail insulin use: without jail use Diabetes mellitus complication status: without complication Qualified Code(s): E11.9 - Type 2 diabetes mellitus without complications (5) Hypokalemia Current Visit: Yes Status: Acute Assessment and plan: Replaced, repeat BMP in the morning. (6) Obesity (BMI 30-39.9) Current Visit: No Status: Acute Assessment and plan: Weight control discussed with patient. (7) DVT prophylaxis Current Visit: Yes Status: Acute Assessment and plan: SCDs. - Time Spent With Patient Total time spent is greater than 50% in coordination of care (as documented) at patient's floor/unit and/or counseling patient: Greater than 35 minutes Internal Medicine - CN: HPI - Data of Consult Patient: new to practice Consult date: 11/23/18 Requesting Physician: Tomer Calixto - Consult Narrative Reason for consult: HTN History of present illness: Mr. Garcia is a 43-year-old male with past medical history of arthritis, asthma, diabetes mellitus, hypertension, and kidney stone disease who presented to the ED today for severe left flank pain. A CT abdomen revealed a 2 mm ureteral stone with mild hydronephrosis of the left side. He was notable for high blood pressure and tachycardia at the ED. Labs showed slightly low potassium level, UA was negative for UTI. Patient was admitted by urology service, hospital medicine was consulted to manage his medical issues while he is in the hospital. medicine service was asked to evaluate his medical status. 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 Psychiatric history: anxiety - Past Surgical History Surgical History: appendectomy Additional surgical history: KIDNEY STONES, left knee - Social History Smoking Status: Never smoker Smokeless Tobacco Status: No Alcohol use: none Drug use: none - Family History Mother Living Status: Still Living Hx Family Cardiac Disorders: Yes Father Living Status: Still Living Review of systems: REVIEW OF SYSTEMS: CONSTITUTIONAL: No weight loss, fever, chills, weakness or fatigue. HEENT: Eyes: No visual loss, blurred vision, double vision or yellow sclerae. Ears, Nose, Throat: No hearing loss, sneezing, congestion, runny nose or sore throat. SKIN: No rash or itching. CARDIOVASCULAR: No chest pain, chest pressure or chest discomfort. No palpitations or edema. RESPIRATORY: No shortness of breath, cough or sputum. GASTROINTESTINAL: No anorexia, nausea, vomiting or diarrhea. No abdominal pain or blood. GENITOURINARY: No dysuria, urgency, or frequency, see HPI. NEUROLOGICAL: No headache, dizziness, syncope, paralysis, ataxia, numbness or tingling in the extremities. No change in bowel or bladder control. MUSCULOSKELETAL: No muscle, back pain, joint pain or stiffness. HEMATOLOGIC: No anemia, bleeding or bruising. LYMPHATICS: No enlarged nodes. No history of splenectomy. PSYCHIATRIC: No history of depression or anxiety. ENDOCRINOLOGIC: No reports of sweating, cold or heat intolerance. No polyuria or polydipsia. Internal Medicine - CN: Meds Albuterol Sulfate [Ventolin Hfa] 2 puff IH Q6H PRN 04/13/18 [History] Amlodipine Besylate 2.5 mg PO DAILY 04/13/18 [History] Atorvastatin Calcium [Lipitor] 20 mg PO QPM 04/13/18 [History] Ergocalciferol (VITAMIN D2) [Vitamin D2] 50,000 unit PO MOWEFR 04/13/18 [History] Fexofenadine/Pseudoephedrine [Mary-D 24 Hour Tablet] 1 each PO DAILY 04/13/18 [History] Gabapentin [Neurontin] 800 mg PO TID 04/13/18 [History] Lisinopril [Zestril] 40 mg PO DAILY 04/13/18 [History] Meloxicam 15 mg PO DAILY 04/13/18 [History] Metoprolol Tartrate [Lopressor] 25 mg PO BID 04/13/18 [History] Omeprazole [PriLOSEC] 40 mg PO BID 04/13/18 [History] Potassium Chloride [K-Tab ER] 20 meq PO DAILY 04/13/18 [History] Aspirin [Adult Aspirin] 81 mg PO DAILY 08/28/18 [History] Lidocaine Patch [Lidoderm 5% patch] 1 each TP DAILY 08/28/18 [History] Oxycodone HCl/Acetaminophen [Percocet 5-325 mg Tablet] 1 tab PO TID 08/28/18 [History] Ondansetron ODT [Zofran ODT] 4 mg SL Q6HR PRN #12 tab.rapdis 11/23/18 [Rx] OxyCODONE/APAP 5/325 [Percocet 5/325 MG] 1 each PO Q6HR PRN 3 Days #12 tablet 11/23/18 [Rx] Allergy/AdvReac Type Severity Reaction Status Date / Time Amoxicillin Allergy Hives Verified 07/26/18 11:06 ampicillin Allergy Hives Verified 07/26/18 11:06 codeine Allergy Hives Verified 07/26/18 11:06 metformin Allergy See Verified 07/26/18 11:06 Comments Penicillins Allergy Hives Verified 07/26/18 11:06 hydrocodone AdvReac Nausea Verified 07/26/18 11:06 Hospitalist - CN: Exam - Constitutional General appearance IM: Present: A&O X 3 Exam: PHYSICAL EXAMINATION: GENERAL APPEARANCE: The patient is alert, oriented and in no acute distress. HEENT: Head is normocephalic. The sinuses are nontender. Pupils are equal and reactive. The nares are patent. Oropharynx clear without lesions. NECK: Supple without lymphadenopathy. HEART: Regular rate and rhythm. LUNGS: No crackles or wheezes are heard. ABDOMEN: Soft, nontender, nondistended with good bowel sounds heard. Inguinal area is normal. EXTREMITIES: Without cyanosis, clubbing or edema. NEUROLOGICAL: Gross nonfocal. SKIN: Warm and dry without any rash. Consult Discharge Plan - Plan Referrals: NONE,PCP [Primary Care Provider] -
[2018-11-23] MEDS: Ketorolac 30 MG/ML VIAL IVP SCH (16:45)
[2018-11-23] MEDS: 0.9 % Sodium Chloride 1,000 ML IVC SCH (16:47)
[2018-11-23] MEDS: Levofloxacin 500 MG/100 ML 500 MG/100 ML BAG IVPB SCH (16:48)
[2018-11-23] MEDS: Insulin LISPRO 300 UNITS/3 ML VIAL SQ SCH (17:49)
--- NOTE | 2018-11-23 17:53 | Anesthesia Evaluation PreOp ---
Addendum entered and electronically signed by Ursula Kaur MD 11/24/18 14:23: Vital Signs Temp Pulse Resp BP Pulse Ox 11/24/18 11:17 97.4 F L 83 15 164/84 97 11/24/18 08:40 95 11/24/18 08:08 97.2 F L 92 16 153/91 95 11/24/18 03:45 97.9 F 78 16 164/94 98 11/23/18 21:29 168/102 11/23/18 18:56 97.7 F 99 16 153/108 95 11/23/18 17:17 97.5 F L 88 18 172/113 95 Intake and Output 11/23/18 11/24/18 11/24/18 23:59 07:59 15:59 Intake Total 100 / 100 1300 / 1300 1200 / 1200 Output Total 200 / 200 600 / 600 250 / 250 Balance -100 / -100 700 / 700 950 / 950 Intake: IV Fluids 100 / 100 1300 / 1300 1200 / 1200 0.9 % Sodium Chloride 1,000 ML 1000 / 1000 1000 / 1000 @ 125 mls/hr IVC .Q8H [facility] Rx#: [id number] Ofirmev 1,000 mg/100 ml 1,000 100 / 100 200 / 200 100 / 100 mg In 100 ml @ 400 mls/hr IVPB Q6HR [facility] Rx#:[id number] Levaquin Premix 500mg/100mL 500 100 / 100 100 / 100 mg In 100 ml @ 100 mls/hr IVPB DAILY [facility] Rx#:[id number] Oral 0 / 0 Output: Urine 200 / 200 600 / 600 250 / 250 Other: Meal Breakfast Percent of Meal Consumed 0% # Voids 1 Weight 129.756 kg 131 kg Blood Glucose* 206 160 Patient Weight 11/24/18 23:59 Weight 131 kg Laboratory Results WBC 6.6 K/mcL (4.3-11.1) 11/24/18 03:50 RBC 4.73 M/mcL (4.19-5.50) 11/24/18 03:50 Hgb 13.8 g/dL (12.9-16.9) 11/24/18 03:50 Hct 40.4 % (37.5-50.1) 11/24/18 03:50 MCV 85.4 fL (83.0-100.0) 11/24/18 03:50 MCH 29.2 pg (28.0-33.3) 11/24/18 03:50 MCHC 34.2 g/dL (31.6-35.5) 11/24/18 03:50 RDW 12.4 % (11.5-14.5) 11/24/18 03:50 Plt Count 208 K/mcL (140-400) 11/24/18 03:50 MPV 9.5 fL (9.4-12.4) 11/24/18 03:50 Immature Gran % 0.6 % (0-4) 11/24/18 03:50 Seg Neutrophils % 61.1 % 11/24/18 03:50 Lymphocytes % 23.6 % 11/24/18 03:50 Monocytes % 11.7 % 11/24/18 03:50 Eosinophils % 2.7 % 11/24/18 03:50 Basophils % 0.3 % 11/24/18 03:50 Neutrophils # 4.0 K/mcL (1.6-8.9) 11/24/18 03:50 Lymphocytes # 1.6 K/mcL (0.6-4.6) 11/24/18 03:50 Monocytes # 0.8 K/mcL (0.0-1.3) 11/24/18 03:50 Eosinophils # 0.2 K/mcL (0.0-0.6) 11/24/18 03:50 Basophils # 0.0 K/mcL (0.0-0.2) 11/24/18 03:50 Sodium 139 mEq/L (136-145) 11/24/18 03:50 Potassium 3.6 mEq/L (3.5-5.1) 11/24/18 03:50 Chloride 103 mEq/L (98-107) 11/24/18 03:50 Carbon Dioxide 27 mEq/L (23-29) 11/24/18 03:50 BUN 13 mg/dL (6-20) 11/24/18 03:50 Creatinine 0.71 mg/dL (0.70-1.30) 11/24/18 03:50 Est GFR ( Amer) > 60 (> 60) 11/24/18 03:50 Est GFR (Non-Af Amer) > 60 (> 60) 11/24/18 03:50 BUN/Creatinine Ratio 18 (6-26) 11/24/18 03:50 Glucose 240 mg/dL (70-105) H 11/24/18 03:50 POC Glucose 206 mg/dL (70-99) H 11/23/18 20:41 Calculated Osmolality 296 (280-300) 11/24/18 03:50 Calcium 8.7 mg/dL (8.6-10.3) 11/24/18 03:50 Laboratory Results Original Note: Date of Encounter: 11/23/18 Time of Encounter: 18:59 - Past History Planned Operation: Cytsoscopy, Left Ureteroscopic Stone Extraction Cardiac History: HTN, Hyperlipidemia, Other (H/O DVT) Pulmonary History: SHRAVAN Dx (uses CPAP) FISH BAIT PICKER History: Denies Any Significant HX Other Medical History: Renal (kidney stones), Diabetes Type II, GERD Anesthesia History: No Prior Anesthetic Complications, Past Anesthesia Alcohol Use: none Drug use: none Medications and Allergies Albuterol Sulfate [Ventolin Hfa] 2 puff IH Q6H PRN 04/13/18 [History] Amlodipine Besylate 2.5 mg PO DAILY 04/13/18 [History] Atorvastatin Calcium [Lipitor] 20 mg PO QPM 04/13/18 [History] Ergocalciferol (VITAMIN D2) [Vitamin D2] 50,000 unit PO MOWEFR 04/13/18 [History] Fexofenadine/Pseudoephedrine [Mary-D 24 Hour Tablet] 1 each PO DAILY 04/13/18 [History] Gabapentin [Neurontin] 800 mg PO TID 04/13/18 [History] Lisinopril [Zestril] 40 mg PO DAILY 04/13/18 [History] Meloxicam 15 mg PO DAILY 04/13/18 [History] Metoprolol Tartrate [Lopressor] 25 mg PO BID 04/13/18 [History] Omeprazole [PriLOSEC] 40 mg PO BID 04/13/18 [History] Potassium Chloride [K-Tab ER] 20 meq PO DAILY 04/13/18 [History] Aspirin [Adult Aspirin] 81 mg PO DAILY 08/28/18 [History] Lidocaine Patch [Lidoderm 5% patch] 1 each TP DAILY 08/28/18 [History] Oxycodone HCl/Acetaminophen [Percocet 5-325 mg Tablet] 1 tab PO TID 08/28/18 [History] Ondansetron ODT [Zofran ODT] 4 mg SL Q6HR PRN #12 tab.rapdis 11/23/18 [Rx] OxyCODONE/APAP 5/325 [Percocet 5/325 MG] 1 each PO Q6HR PRN 3 Days #12 tablet 11/23/18 [Rx] Allergy/AdvReac Type Severity Reaction Status Date / Time Amoxicillin Allergy Hives Verified 07/26/18 11:06 ampicillin Allergy Hives Verified 07/26/18 11:06 codeine Allergy Hives Verified 07/26/18 11:06 metformin Allergy See Verified 07/26/18 11:06 Comments Penicillins Allergy Hives Verified 07/26/18 11:06 hydrocodone AdvReac Nausea Verified 07/26/18 11:06 - Meds/Allergy Pre-op Review Medications Reviewed: Yes Allergies Reviewed: Yes Beta Blockers on Current Med List: Yes Anesthesia Results - Labs Laboratory Tests 11/23/18 11/23/18 03:34 03:34 WBC 9.0 Hgb 15.1 Hct 43.9 Plt Count 247 Sodium 140 Potassium 3.3 L BUN 12 Creatinine 0.81 - Imaging EKG: report reviewed (08/29/2018 SINUS TACHYCARDIA MODERATE VOLTAGE CRITERIA FOR LVH, CONSIDER NORMAL VARIANT) Additional studies: 08/30/2018 Stress Impression: No ischemia or infarct on perfusion study. Stress LVEF 70%. Technical artifact present (fixed inferolateral perfusion defect of small size and mild intensity). Pharmacologic stress ECG non-diagnostic for ischemia. Hypotensive response during pharmacological stress. 08/29/2018 Echo Impressions: LVEF 65%. Mild concentric left ventricular hypertrophy. Indeterminate diastolic function. Definity echo contrast was used. No significant valvular dysfunction. No pulmonary hypertension. Anesthesia Exam Vital Signs/O2 Sat/Glucose, Most Recent Temp Pulse Resp BP Pulse Ox 97.5 F L 88 18 172/113 95 11/23/18 17:17 11/23/18 17:17 11/23/18 17:17 11/23/18 17:17 11/23/18 17:17 Blood Glucose* 154 Height: 5'11''/1.8m Weight: 286 lbs/129.8 kg NPO (# of Hours): 8 Pain Scale: 0 Pain Scale Used: Numeric (1 - 10) - HEENT Pupil (Motor): EOMI Mallampati: III Teeth: Normal Oral Opening: Less than or equal to 3 - FISH BAIT PICKER LOC: Oriented FISH BAIT PICKER Motor: Normal RUE, Normal LUE, Normal RLE, Normal LLE, Normal Face FISH BAIT PICKER Sensory: Normal: RUE, LUE, RLE, LLE, Face - Cardiac Rhythm: Regular Murmur: None - Pulmonary Breath Sounds: bilateral Clear Respiratory Effort: Symmetrical Anesthesia Assess/Plan ASA Score: 3 Level of consciousness: Cooperative, Oriented, Tranquil Anesthetic Plan: General Monitoring Plan: Standard Monitors Recovery Plan: PACU
[2018-11-23] MEDS: Acetaminophen IV 1,000 MG/100 ML INFUS..BTL IVPB SCH (20:13)
[2018-11-23] MEDS ORDERED: Insulin LISPRO 300 UNITS/3 ML VIAL SQ SCH (21:00)
[2018-11-23] MEDS: traMADol 50 MG TABLET PO PRN (23:10)
[2018-11-24] MEDS: Acetaminophen IV 1,000 MG/100 ML INFUS..BTL IVPB SCH ×4 (00:47→18:29)
[2018-11-24] MEDS: Ketorolac 30 MG/ML VIAL IVP SCH ×4 (00:48→18:18)
[2018-11-24] MEDS: 0.9 % Sodium Chloride 1,000 ML IVC SCH ×2 (00:48→10:52)
[2018-11-24 04:11] LABS: Basophils % 0.3 %; Eosinophils # 0.2 K/mcL (0.0-0.6); Eosinophils % 2.7 %; Hematocrit 40.4 % (37.5-50.1); Hemoglobin 13.8 g/dL (12.9-16.9); Immature Granulocytes % 0.6 % (0-4); Lymphocytes # 1.6 K/mcL (0.6-4.6); Lymphocytes % 23.6 %; Mean Corpuscular HGB Conc 34.2 g/dL (31.6-35.5); Mean Corpuscular Hemoglobin 29.2 pg (28.0-33.3); Mean Corpuscular Volume 85.4 fL (83.0-100.0); Mean Platelet Volume 9.5 fL (9.4-12.4); Monocytes # 0.8 K/mcL (0.0-1.3); Monocytes % 11.7 %; Platelet Count 208 K/mcL (140-400); Red Blood Count 4.73 M/mcL (4.19-5.50); Red Cell Distribution Width 12.4 % (11.5-14.5); Segmented Neutrophils % 61.1 %
[2018-11-24 04:32] LABS: BUN/Creatinine Ratio 18 (6-26); Blood Urea Nitrogen 13 mg/dL (6-20); Calcium 8.7 mg/dL (8.6-10.3); Carbon Dioxide 27 mEq/L (23-29); Chloride 103 mEq/L (98-107); Glucose 240 mg/dL (70-105); Osmolality,Calculated 296 (280-300); Potassium 3.6 mEq/L (3.5-5.1); Sodium 139 mEq/L (136-145); eGFR For Non-African Americans > 60 (> 60)
[2018-11-24] MEDS: Insulin LISPRO 300 UNITS/3 ML VIAL SQ SCH ×3 (08:27→17:54)
[2018-11-24] MEDS: Levofloxacin 500 MG/100 ML 500 MG/100 ML BAG IVPB SCH (08:28)
[2018-11-24] MEDS: traMADol 50 MG TABLET PO PRN (08:39)
--- NOTE | 2018-11-24 12:35 | Urology Progress Note ---
Date of Encounter: 11/24/18 Time of Encounter: 12:34 - Assessment and Plan (1) Ureteral stone Current Visit: Yes Status: Acute Assessment and plan: pt does not believe he passed the stone. urine has been strained. proceed with stone extraction today. Progress Note Subjective: still having pain Objective Initial Vital Signs Temp Pulse Resp BP Pulse Ox 97.5 F L 88 18 172/113 95 11/23/18 17:17 11/23/18 17:17 11/23/18 17:17 11/23/18 17:17 11/23/18 17:17 - General physical appearance Present: no distress - Abdomen Present: soft - Labs 11/24/18 03:50 11/24/18 03:50 Diabetes panel 11/24/18 Range/Units 03:50 Sodium 139 (136-145) mEq/L Potassium 3.6 (3.5-5.1) mEq/L Chloride 103 (98-107) mEq/L Carbon Dioxide 27 (23-29) mEq/L BUN 13 (6-20) mg/dL Creatinine 0.71 (0.70-1.30) mg/dL Glucose 240 H (70-105) mg/dL Calcium 8.7 (8.6-10.3) mg/dL Calcium panel 11/24/18 Range/Units 03:50 Calcium 8.7 (8.6-10.3) mg/dL Pituitary panel 11/24/18 Range/Units 03:50 Sodium 139 (136-145) mEq/L Potassium 3.6 (3.5-5.1) mEq/L Chloride 103 (98-107) mEq/L Carbon Dioxide 27 (23-29) mEq/L BUN 13 (6-20) mg/dL Creatinine 0.71 (0.70-1.30) mg/dL Glucose 240 H (70-105) mg/dL Calcium 8.7 (8.6-10.3) mg/dL Adrenal panel 11/24/18 Range/Units 03:50 Sodium 139 (136-145) mEq/L Potassium 3.6 (3.5-5.1) mEq/L Chloride 103 (98-107) mEq/L Carbon Dioxide 27 (23-29) mEq/L BUN 13 (6-20) mg/dL Creatinine 0.71 (0.70-1.30) mg/dL Glucose 240 H (70-105) mg/dL Calcium 8.7 (8.6-10.3) mg/dL Consult Discharge Plan - Plan Referrals: NONE,PCP [Primary Care Provider] -
--- NOTE | 2018-11-24 14:08 | Internal Med Progress Note ---
Hospitalist Progress Note - Encounter Date of Encounter: 11/24/18 Time of Encounter: 14:06 - Subjective Interval History: Pt seen and examined in the room. Denies left flank pain. but had bad headache. No stone passed overnight. - Exam Vitals: Temp Pulse Resp BP Pulse Ox 97.4 F L 83 15 164/84 97 11/24/18 11:17 11/24/18 11:17 11/24/18 11:17 11/24/18 11:17 11/24/18 11:17 Exam: PHYSICAL EXAMINATION: GENERAL APPEARANCE: The patient is alert, oriented and in no acute distress. HEENT: Head is normocephalic. The sinuses are nontender. Pupils are equal and reactive. The nares are patent. Oropharynx clear without lesions. NECK: Supple without lymphadenopathy. HEART: Regular rate and rhythm. LUNGS: No crackles or wheezes are heard. ABDOMEN: Soft, nontender, nondistended with good bowel sounds heard. Inguinal area is normal. EXTREMITIES: Without cyanosis, clubbing or edema. NEUROLOGICAL: Gross nonfocal. SKIN: Warm and dry without any rash. - Assessment and Plan (1) Kidney stone on left side Current Visit: Yes Status: Inactive Assessment and Plan: CT abdomen showed 2 mm left ureteral calculus with mild left hydronephrosis. IV antibiotics and IV fluid started by urology. Continue pain control. Procedure scheduled per urology. (2) Arthritis of knee, left Current Visit: No Status: Chronic Assessment and Plan: Continue home pain medications. (3) HTN (hypertension) Current Visit: No Status: Chronic Assessment and Plan: resume home meds. (4) DMII (diabetes mellitus, type 2) Current Visit: No Status: Chronic Assessment and Plan: Start patient on insulin sliding scale. (5) Hypokalemia Current Visit: Yes Status: Resolved (6) Obesity (BMI 30-39.9) Current Visit: No Status: Acute Assessment and Plan: Weight control discussed with patient. (7) DVT prophylaxis Current Visit: Yes Status: Acute - Time Spent with Patient Total time spent is greater than 50% in coordination of care (as documented) at patient's floor/unit and/or counseling patient: Greater than 35 minutes Plan of Care Discussed with: patient Internal Medicine: Result - Labs CBC & Chem 7: 11/24/18 03:50 11/24/18 03:50 Labs: Short CBC 04/05/19 Range/Units 03:50 WBC 6.6 (4.3-11.1) K/mcL Hgb 13.8 (12.9-16.9) g/dL Hct 40.4 (37.5-50.1) % Plt Count 208 (140-400) K/mcL Neutrophils # 4.0 (1.6-8.9) K/mcL BMP 11/24/18 03:50 Sodium 139 Potassium 3.6 Chloride 103 Carbon Dioxide 27 BUN 13 Creatinine 0.71 Glucose 240 H Calcium 8.7 Consult Discharge Plan - Plan Referrals: NONE,PCP [Primary Care Provider] - (3) HTN (hypertension) Qualifiers: Hypertension type: unspecified Qualified Code(s): I10 - Essential (primary) hypertension (4) DMII (diabetes mellitus, type 2) Qualifiers: Diabetes mellitus assistant attorney general insulin use: without assistant attorney general use Diabetes mellitus complication status: without complication Qualified Code(s): E11.9 - Type 2 diabetes mellitus without complications
[2018-11-24] MEDS ORDERED: *HR* FentaNYL (PF) 100 MCG/2 ML VIAL ONE ×2 (19:27→20:10)
[2018-11-24] MEDS ORDERED: *HR* Midazolam HCl 2 MG/2 ML VIAL ONE (19:27)
[2018-11-24] MEDS ORDERED: Lidocaine -MPF 2% 2 ML VIAL ONE (19:27)
[2018-11-24] MEDS ORDERED: *HR* Propofol 200 MG/20 ML VIAL IVP ONE (19:28)
[2018-11-24] MEDS ORDERED: Isovue-300 50 ML VIAL ONE (19:34)
--- NOTE | 2018-11-24 19:38 | Discharge Summary ---
Orders not resulted at time of discharge: Pending orders 11/25/18 04:00 BMP [Basic Metabolic Panel] AM 0400 Date of Encounter: 11/24/18 Time of Encounter: 19:35 - Discharge Diagnosis (1) Ureteral stone Priority: Primary Status: Resolved - Hospital Course Hospital course: Mr. Garcia is a 43 year old male admitted for a obstructing left ureteral stone. Status post intervention. Plan to discharge when symptoms allow. - Time Spent with Patient Total time spent providing and/or coordinating discharge services: Less than 30 minutes Labs on day of discharge: Labs from last 24 hours 11/24/18 11/24/18 11/24/18 11:20 08:13 03:50 WBC RBC Hgb Hct MCV MCH MCHC RDW Plt Count MPV Immature Gran % Seg Neutrophils % Lymphocytes % Monocytes % Eosinophils % Basophils % Neutrophils # Lymphocytes # Monocytes # Eosinophils # Basophils # Sodium 139 Potassium 3.6 Chloride 103 Carbon Dioxide 27 BUN 13 Creatinine 0.71 Est GFR ( Amer) > 60 Est GFR (Non-Af Amer) > 60 BUN/Creatinine Ratio 18 Glucose 240 H POC Glucose 160 H 155 H Calculated Osmolality 296 Calcium 8.7 11/24/18 11/23/18 11/23/18 03:50 20:41 17:19 WBC 6.6 RBC 4.73 Hgb 13.8 Hct 40.4 MCV 85.4 MCH 29.2 MCHC 34.2 RDW 12.4 Plt Count 208 MPV 9.5 Immature Gran % 0.6 Seg Neutrophils % 61.1 Lymphocytes % 23.6 Monocytes % 11.7 Eosinophils % 2.7 Basophils % 0.3 Neutrophils # 4.0 Lymphocytes # 1.6 Monocytes # 0.8 Eosinophils # 0.2 Basophils # 0.0 Sodium Potassium Chloride Carbon Dioxide BUN Creatinine Est GFR ( Amer) Est GFR (Non-Af Amer) BUN/Creatinine Ratio Glucose POC Glucose 206 H 154 H Calculated Osmolality Calcium - Discharge Medications Prescriptions: New Ipratropium/Albuterol Neb [Duoneb] 3 ml IH [id number] PRN inhsol PRN Reason: Shortness Of Breath/Wheezing Insulin LISPRO [HumaLOG] 0 units SQ HS vial Insulin LISPRO [HumaLOG] 0 units SQ TIDAC vial Continue Omeprazole [PriLOSEC] 40 mg PO BID Potassium Chloride [K-Tab ER] 20 meq PO TID Lisinopril [Zestril] 40 mg PO DAILY Gabapentin [Neurontin] 800 mg PO QID Ergocalciferol (VITAMIN D2) [Vitamin D2] 50,000 unit PO MOWE Atorvastatin Calcium [Lipitor] 20 mg PO QPM Albuterol Sulfate [Ventolin Hfa] 2 puff IH Q6H PRN PRN Reason: Dyspnea Aspirin [Adult Aspirin] 81 mg PO DAILY Alogliptin Benzoate [Alogliptin] 25 mg PO DAILY Amlodipine Besylate 10 mg PO DAILY Celecoxib [Celebrex] 200 mg PO DAILY Duloxetine HCl [Cymbalta] 60 mg PO DAILY glipiZIDE [Glipizide] 10 mg PO DAILY Metoprolol [Lopressor] 75 mg PO BID OxyCODONE/APAP 5/325 [Percocet 5/325 MG] 1 each PO TID PRN 3 Days #15 tablet PRN Reason: Pain Home Medications: Albuterol Sulfate [Ventolin Hfa] 2 puff IH Q6H PRN 04/13/18 [History] Atorvastatin Calcium [Lipitor] 20 mg PO QPM 04/13/18 [History] Ergocalciferol (VITAMIN D2) [Vitamin D2] 50,000 unit PO MOWE 04/13/18 [History] Gabapentin [Neurontin] 800 mg PO QID 04/13/18 [History] Lisinopril [Zestril] 40 mg PO DAILY 04/13/18 [History] Omeprazole [PriLOSEC] 40 mg PO BID 04/13/18 [History] Potassium Chloride [K-Tab ER] 20 meq PO TID 04/13/18 [History] Aspirin [Adult Aspirin] 81 mg PO DAILY 08/28/18 [History] Alogliptin Benzoate [Alogliptin] 25 mg PO DAILY 11/24/18 [History] Amlodipine Besylate 10 mg PO DAILY 11/24/18 [History] Celecoxib [Celebrex] 200 mg PO DAILY 11/24/18 [History] Duloxetine HCl [Cymbalta] 60 mg PO DAILY 11/24/18 [History] Insulin LISPRO [HumaLOG] 0 units SQ HS vial 11/24/18 [Rx] Insulin LISPRO [HumaLOG] 0 units SQ TIDAC vial 11/24/18 [Rx] Ipratropium/Albuterol Neb [Duoneb] 3 ml IH [id number] PRN inhsol 11/24/18 [Rx] Metoprolol [Lopressor] 75 mg PO BID 11/24/18 [History] OxyCODONE/APAP 5/325 [Percocet 5/325 MG] 1 each PO TID PRN 3 Days #15 tablet 11/24/18 [Rx] glipiZIDE [Glipizide] 10 mg PO DAILY 11/24/18 [History] Allergies/Adverse Reactions: Allergy/AdvReac Type Severity Reaction Status Date / Time Amoxicillin Allergy Hives Verified 11/24/18 15:24 ampicillin Allergy Hives Verified 11/24/18 15:24 codeine Allergy Hives Verified 11/24/18 15:24 metformin Allergy See Verified 11/24/18 15:24 Comments Penicillins Allergy Hives Verified 11/24/18 15:24 hydrocodone AdvReac Nausea Verified 11/24/18 15:24 Date of admission: 11/23/18 16:04 Primary care physician: PCP NONE Consults: 11/23/18 15:22 Consult to Hospitalist [CONS] Routine Consulting Provider: Hospitalist [place] Reason for Consult: Hypertension, tachycardia, preoperative optimization, chronic opioid usage, medical management Call Completed: Yes Discharging clinician: Felton Valencia Anticipated date of discharge: 11/24/18 Exam Initial Vital Signs Temp Pulse Resp BP Pulse Ox 97.5 F L 88 18 172/113 95 11/23/18 17:17 11/23/18 17:17 11/23/18 17:17 11/23/18 17:17 11/23/18 17:17 - General physical appearance Present: no distress - Patient Status Disposition: Home, Self-Care Condition: Good Functional capacity at discharge: independent ambulation Overall status at discharge: patient is progressing back to baseline - Discharge Instructions Follow Up With: NONE,PCP [Primary Care Provider] - Felton Valencia MD [Partnered Physician] - (office will contact pt with results. ) Additional Instructions: Expect stent discomfort including urgency, frequency, burning on urination, light blood in the urine, flank pain on urination. Stent can be removed in 72 hours by pulling on the string until the entire stent is removed. Okay to come to the office for removal if needed Call of severe pain or fever over 101 degrees Okay to take [id number] AZO for discomfort - Diet and Activity Activity: other Diet: diabetic diet
--- NOTE | 2018-11-24 19:39 | Operative Note ---
Date of procedure: 11/24/18 Pre-op diagnosis: Left ureteral stone Post-op diagnosis: other (mid ureteral stricture. no stone.) Procedure: Left diagnostic ureteroscopy Left retrograde pyelogram Left ureteral stent placement Anesthesia: GETA Surgeon: Felton Valencia Was there an design assistant present: No Estimated blood loss (cc): 0 Specimen: None Condition: stable Disposition: PACU Procedure in Detail: PROCEDURE IN DETAIL: Patient was taken back to the operating room, positioned supine on the operating table. Anesthesia was applied without complication. They were moved into dorsal lithotomy. Careful attention was maintained to cushion all pressure points for patient's safety. They were prepped and draped in sterile fashion. Time-out was performed with the proper patient and procedure. A 17-Palau[place] rigid cystoscope was inserted into the bladder without difficulty. Systematic examination of bladder revealed no abnormalities. Patient had a very high bladder neck and it was difficult to navigate to the left ureteral orifice. Eventually The left ureteral orifice was cannulated using a 5-Palauan ureteral Catheter and a retrograde pyelogram was performed using Isovue. A ureteral narrowing was seen in the area of the stone imaged on CT scan. I did not see an obvious filling defect in this location. There appeared to be a filling defect in the renal pelvis indicating the stone may have migrated proximally. I later determined that this was an air bubble. I p assed a zip wire without difficulty. I then passively dilated the left ureteral orifice with an 810 dilator. I was able to navigate a flexible ureteroscope over the zip wire up to the level of the ureteral narrowing. The scope would not pass through this location. Eventually with some pressure and manipulation the scope did pop through the narrowed area over guidance of the zip wire. I was then able to guide the scope into the renal pelvis. The wire was removed and I examined each calyceal system. Besides a few Oral's plaques I was unable to identify any free floating stone. The maneuverability of the ureteroscope was limited because of the ureteral stricture. I then carefully examined the ureter while withdrawing the scope. In the mid ureter there was a circumferential stricture which had obviously been stretched open with passage of the ureteroscope. There was no erythematous areas would represent concern for malignancy. I examined the rest of the ureter and identified no stone. I eventually placed a 4.8 x 26 ureteral stent without a dangle string.
[2018-11-24] MEDS ORDERED: Ondansetron 4 MG/2 ML VIAL ONE (19:52)
[2018-11-24] MEDS ORDERED: Dexamethasone 4 MG/ML VIAL ONE (19:52)
[2018-11-24] MEDS: *HR* Labetalol 20 MG/4 ML SYRINGE IVP PRN ×2 (20:42→20:47)
[2018-11-24] MEDS ORDERED: *HR* HYDROmorphone (PF) 1 MG/ML SYRINGE IVP PRN (20:44)
[2018-11-24] MEDS ORDERED: *HR* Promethazine 25 MG/ML VIAL IVP PRN (20:44)
[2018-11-24] MEDS ORDERED: *HR* Labetalol 20 MG/4 ML SYRINGE IVP ONE (20:45)
[2018-11-24] MEDS ORDERED: Gabapentin 400 MG CAPSULE PO SCH (21:00)
--- NOTE | 2018-11-24 21:03 | Anesthesia Evaluation Post Op ---
Date of Encounter: 11/24/18 Time of Encounter: 21:03 - Vital Signs Vital Signs: Vital Signs/O2 Sat, Most Current Temp Pulse Resp BP Pulse Ox 98.9 F 110 16 152/84 92 11/24/18 20:52 11/24/18 20:52 11/24/18 20:52 11/24/18 20:52 11/24/18 20:52 - Lungs Lungs: Clear Ascult./Percussion - Airway Airway: Non-obstructed - Cardiovascular Regular Rate - Mental Status Mental Status: Alert & Oriented, Answers Appropriately - Pain Pain Scale: 0 Pain Scale used: Numeric (1 - 10) - Nausea Vomiting Nausea Vomiting: Not Present - Hydration Hydration: NPO, Has not voided - Discharge PostOp Status: Transfer Patient to floor
[2018-11-24] MEDS ORDERED: *HR* Dextrose 50 % in Water (Syg) 50 ML SYRINGE IVP PRN (21:07)
[2018-11-24] MEDS ORDERED: *HR* OxyCODONE Immed Rel 5 MG TABLET PO PRN (21:07)
[2018-11-24] MEDS ORDERED: Ondansetron 4 MG/2 ML VIAL IVP PRN (21:07)
[2018-11-24] MEDS ORDERED: Dextrose Gel 15 GM/37.5 ML TUBE PO PRN ×2 (21:07)
[2018-11-24] MEDS ORDERED: Naloxone 0.4 MG/ML INJ IVP PRN (21:07)
[2018-11-24] MEDS ORDERED: Ipratropium/Albuterol Neb 3 ML IH PRN (21:07)
[2018-11-24] MEDS ORDERED: D5% in Water 1,000 ML IVC PRN (21:07)
[2018-11-24] MEDS ORDERED: traMADol 50 MG TABLET PO PRN (21:07)
[2018-11-24] MEDS ORDERED: Acetaminophen/Aspirin/Caffeine TABLET PO ONE (22:45)
[2018-11-25] MEDS: Acetaminophen IV 1,000 MG/100 ML INFUS..BTL IVPB SCH ×2 (00:38→05:41)
[2018-11-25] MEDS: 0.9 % Sodium Chloride 1,000 ML IVC SCH (00:44)
[2018-11-25] MEDS: Ketorolac 30 MG/ML VIAL IVP SCH ×2 (01:08→05:41)
[2018-11-25 07:23] VITALS: BP 144/89
[2018-11-25] MEDS ORDERED: Insulin LISPRO 300 UNITS/3 ML VIAL SQ SCH ×2 (07:30→21:00)
--- NOTE | 2018-11-25 08:10 | Urology Progress Note ---
Date of Encounter: 11/25/18 Time of Encounter: 08:09 - Assessment and Plan (1) Ureteral stone Current Visit: Yes Status: Resolved Assessment and plan: Patient feels better this morning. Less of a headache. No flank pain. We di scussed the results of the procedure. Okay to discharge. We will schedule cystoscopy stent removal in the office Progress Note Subjective: feels better Objective Initial Vital Signs Temp Pulse Resp BP Pulse Ox 97.5 F L 88 18 172/113 95 11/23/18 17:17 11/23/18 17:17 11/23/18 17:17 11/23/18 17:17 11/23/18 17:17 - General physical appearance Present: no distress - Labs 11/24/18 03:50 11/24/18 03:50 Consult Discharge Plan - Plan Instructions: Chest Pain (DC), Diabetes Mellitus Type 2 in Adults (DC), Chronic Hypertension (DC), Hypertensive Crisis (DC) Additional Instructions: Expect stent discomfort including urgency, frequency, burning on urination, light blood in the urine, flank pain on urination. Stent can be removed in 72 hours by pulling on the string until the entire stent is removed. Okay to come to the office for removal if needed Call of severe pain or fever over 101 degrees Okay to take [id number] AZO for discomfort Referrals: NONE,PCP [Primary Care Provider] - Felton Valencia MD [Partnered Physician] - (office will contact pt with results. ) Prescriptions: OxyCODONE/APAP 5/325 [Percocet 5/325 MG] 1 each PO TID PRN 3 Days #15 tablet PRN Reason: Pain
[2018-11-25] MEDS ORDERED: Gabapentin 400 MG CAPSULE PO SCH (09:00)
[2018-11-25] MEDS ORDERED: Levofloxacin 500 MG/100 ML 500 MG/100 ML BAG IVPB SCH (09:00)
[2018-11-25] MEDS ORDERED: Lisinopril 20 MG TABLET PO SCH ×3 (09:00)
[2018-11-25] MEDS ORDERED: Alogliptin Benzoate [Alogliptin] 25 MG PO SCH (09:00)
[2018-11-25] MEDS ORDERED: amLODIPine 5 MG TABLET PO SCH ×3 (09:00)
[2018-11-25] MEDS ORDERED: (Alogliptin Benzoate [Alogliptin] 25 MG) PO SCH (09:00)
--- NOTE | 2018-11-25 09:37 | Internal Med Progress Note ---
Hospitalist Progress Note - Encounter Date of Encounter: 11/25/18 Time of Encounter: 09:35 - Subjective Interval History: Pt seen and examined in the room. No flank pain, no hematuria, no fever, or chills. - Exam Vitals: Temp Pulse Resp BP Pulse Ox 98.0 F 118 18 144/89 95 11/25/18 07:19 11/25/18 07:19 11/25/18 07:19 11/25/18 07:19 11/25/18 07:19 Exam: PHYSICAL EXAMINATION: GENERAL APPEARANCE: The patient is alert, oriented and in no acute distress. HEENT: Head is normocephalic. The sinuses are nontender. Pupils are equal and reactive. The nares are patent. Oropharynx clear without lesions. NECK: Supple without lymphadenopathy. HEART: Regular rate and rhythm. LUNGS: No crackles or wheezes are heard. ABDOMEN: Soft, nontender, nondistended with good bowel sounds heard. Inguinal area is normal. EXTREMITIES: Without cyanosis, clubbing or edema. NEUROLOGICAL: Gross nonfocal. SKIN: Warm and dry without any rash. - Assessment and Plan (1) Kidney stone on left side Status: Inactive Assessment and Plan: CT abdomen showed 2 mm left ureteral calculus with mild left hydronephrosis. S/P ureter stent placement per urology. Doing well. pain controlled. dc home today with outpt f/u with urology. (2) Arthritis of knee, left Status: Chronic Assessment and Plan: Continue home pain medications. (3) HTN (hypertension) Status: Chronic Assessment and Plan: resume home meds. well controlled. (4) DMII (diabetes mellitus, type 2) Status: Chronic Assessment and Plan: continue home meds once dc'ed. (5) Hypokalemia Status: Resolved (6) Obesity (BMI 30-39.9) Status: Acute Assessment and Plan: Weight control discussed with patient. (7) DVT prophylaxis Status: Acute Assessment and Plan: SCDs. - Time Spent with Patient Total time spent is greater than 50% in coordination of care (as documented) at patient's floor/unit and/or counseling patient: Greater than 35 minutes Plan of Care Discussed with: patient Internal Medicine: Result - Labs CBC & Chem 7: 11/24/18 03:50 11/24/18 03:50 - Impressions Impressions Retrograde Pyelogram 11/24/18 00:00 IMPRESSION: Intraprocedural fluoroscopic spot images as above. See separate procedure report for more information. D/ / 11/24/2018 21:56:43 [facility] Inter[facility] Provider: Kyle Ch MD Consult Discharge Plan - Plan Instructions: Chest Pain (DC), Diabetes Mellitus Type 2 in Adults (DC), Chronic Hypertension (DC), Hypertensive Crisis (DC) Additional Instructions: Expect stent discomfort including urgency, frequency, burning on urination, light blood in the urine, flank pain on urination. Stent can be removed in 72 hours by pulling on the string until the entire stent is removed. Okay to come to the office for removal if needed Call of severe pain or fever over 101 degrees Okay to take [id number] AZO for discomfort Referrals: NONE,PCP [Primary Care Provider] - Felton Valencia MD [Partnered Physician] - (office will contact pt with results. ) Prescriptions: OxyCODONE/APAP 5/325 [Percocet 5/325 MG] 1 each PO TID PRN 3 Days #15 tablet PRN Reason: Pain (3) HTN (hypertension) Qualifiers: Hypertension type: unspecified Qualified Code(s): I10 - Essential (primary) hypertension (4) DMII (diabetes mellitus, type 2) Qualifiers: Diabetes mellitus roll hauler insulin use: without roll hauler use Diabetes mellitus complication status: without complication Qualified Code(s): E11.9 - Type 2 diabetes mellitus without complications
[2018-11-27] MEDS ORDERED: Cholecalciferol (D-3) 1,000 UNIT TABLET PO SCH ×2 (17:12)
== END 2018-11-25 09:00 | disposition home or self-care (01) | DRG 465 ==
LOC: 3BNU → SUATTDRO 16:04
PROVIDERS: ADMIT Urology; ATTEND Internal Medicine

== ENCOUNTER 2020-03-31 21:54 | Observation (INO) ==
[2020-03-31] MEDS ORDERED: Ondansetron 4 MG/2 ML VIAL IVP ONE (23:32)
[2020-03-31] MEDS ORDERED: 0.9 % Sodium Chloride 1,000 ML IVC ONE (23:32)
[2020-03-31] MEDS ORDERED: Famotidine 20 MG/2 ML VIAL IVP ONE (23:33)
[2020-03-31] MEDS ORDERED: Isovue-370 500 ML BOTTLE IVP ONE (23:34)
[2020-03-31 23:54] LABS: Bilirubin,Urine Negative (Negative); Blood,Urine Negative (Negative); Calcium Oxalate Crystals,Urine Present; Clarity,Urine Clear (Clear); Color,Urine Yellow (Yellow); Glucose,Urine (UA) Normal (Normal); Hyaline Casts,Urine Many per lpf (None Seen); Ketones,Urine Negative (Negative); Leukocyte Esterase,Urine Negative (Negative); Mucus,Urine Many per lpf (None-Few); Nitrite,Urine Negative (Negative); PH,Urine 5.5 pH Units (5.0-8.0); Protein,Urine 50 mg/dL (Neg-Trace); Specific Gravity,Urine > 1.030 (1.010-1.025)
[2020-04-01 00:01] LABS: Basophils % 0.3 %; Eosinophils # 0.2 K/mcL (0.0-0.6); Eosinophils % 2.2 %; Hematocrit 41.1 % (37.5-50.1); Hemoglobin 13.5 g/dL (12.9-16.9); Immature Granulocytes % 0.5 % (0-4); Lymphocytes # 1.9 K/mcL (0.6-4.6); Mean Corpuscular HGB Conc 32.8 g/dL (31.6-35.5); Mean Corpuscular Hemoglobin 28.3 pg (28.0-33.3); Mean Corpuscular Volume 86.2 fL (83.0-100.0); Mean Platelet Volume 9.5 fL (9.4-12.4); Monocytes # 0.9 K/mcL (0.0-1.3); Monocytes % 10.2 %; Neutrophils # 6.1 K/mcL (1.6-8.9); Platelet Count 313 K/mcL (140-400); Red Blood Count 4.77 M/mcL (4.19-5.50); Red Cell Distribution Width 12.8 % (11.5-14.5); Segmented Neutrophils % 65.8 %; White Blood Count 9.2 K/mcL (4.3-11.1)
[2020-04-01 00:11] LABS: Alanine Aminotransferase 18 Units/L (7-52); Albumin 4.4 g/dL (3.5-5.7); Albumin/Globulin Ratio 1.4 (1.1-2.2); Alkaline Phosphatase 97 Units/L (34-104); Aspartate Amino Transferase 12 Units/L (13-39); BUN/Creatinine Ratio 19 (6-26); Bilirubin,Direct 0.1 mg/dL (0.0-0.2); Bilirubin,Indirect 0.2 mg/dL (0.0-1.0); Bilirubin,Total 0.3 mg/dL (0.3-1.0); Blood Urea Nitrogen 21 mg/dL (6-20); Calcium 9.6 mg/dL (8.6-10.3); Carbon Dioxide 23 mEq/L (23-29); Chloride 106 mEq/L (98-107); Globulin 3.1 g/dL (2.4-3.5); Glucose 104 mg/dL (70-105); Lipase 24 Units/L (11-82); Osmolality,Calculated 291 (280-300); Potassium 3.9 mEq/L (3.5-5.1); Sodium 139 mEq/L (136-145); Total Protein 7.5 g/dL (6.4-8.9); eGFR For African Americans > 60 (> 60); eGFR For Non-African Americans > 60 (> 60)
[2020-04-01] MEDS ORDERED: Ondansetron 4 MG/2 ML VIAL IVP ONE (03:20)
[2020-04-01] MEDS ORDERED: GI Cocktail 40 ML EACH PO ONE (03:21)
[2020-04-01] MEDS ORDERED: Ketorolac 15 MG/ML VIAL IVP ONE (03:21)
[2020-04-01 04:51] LABS: Magnesium 1.6 mg/dL (1.6-2.6)
[2020-04-01 04:52] LABS: Troponin I < 0.03 ng/mL (< 0.04)
[2020-04-01] MEDS ORDERED: Pantoprazole 40 MG VIAL IVP ONE (07:11)
[2020-04-01] MEDS ORDERED: Metoclopramide 10 MG/2 ML VIAL IVP ONE (08:00)
[2020-04-01] MEDS ORDERED: Naloxone 0.4 MG/ML INJ IVP PRN (08:13)
[2020-04-01] MEDS ORDERED: Metoclopramide 10 MG/2 ML VIAL IVP PRN (08:14)
[2020-04-01] MEDS ORDERED: D5% in Water 1,000 ML IVC PRN (09:00)
[2020-04-01] MEDS ORDERED: Dextrose Gel 15 GM/37.5 ML TUBE PO PRN ×2 (09:00)
[2020-04-01] MEDS ORDERED: *HR* Dextrose 50 % in Water (Vial) 50 ML VIAL IVP PRN (09:00)
[2020-04-01] MEDS: 0.9 % Sodium Chloride 1,000 ML IVC SCH (11:19)
[2020-04-01] MEDS: Insulin LISPRO 300 UNITS/3 ML VIAL SQ SCH ×2 (12:02→16:22)
[2020-04-01] MEDS ORDERED: Lidocaine -MPF 2% 2 ML VIAL ONE (12:32)
[2020-04-01] MEDS ORDERED: *HR* Propofol 200 MG/20 ML VIAL IVP ONE (12:33)
[2020-04-01] MEDS ORDERED: *HR* Metoprolol 5 MG/5 ML VIAL IVP ONE (12:52)
[2020-04-01] MEDS: cloNIDine HCL 0.1 MG TABLET PO SCH (18:01)
[2020-04-01] MEDS: *HR* Heparin 5,000 UNIT/ML VIAL SQ SCH (18:01)
[2020-04-01] MEDS: carvediloL 25 MG TABLET PO SCH (18:01)
[2020-04-01] MEDS: Gabapentin 400 MG CAPSULE PO SCH (20:50)
[2020-04-01] MEDS: *HR* OxyCODONE/APAP 5/325 TABLET PO PRN (20:50)
[2020-04-01] MEDS ORDERED: NON-FORMULARY MEDICATION 1 EACH EACH (Omeprazole [Prilosec] 40 MG) PO SCH (21:00)
[2020-04-02] MEDS: 0.9 % Sodium Chloride 1,000 ML IVC SCH (01:54)
[2020-04-02] MEDS: Insulin LISPRO 300 UNITS/3 ML VIAL SQ SCH ×5 (01:56→23:30)
[2020-04-02] MEDS: *HR* Heparin 5,000 UNIT/ML VIAL SQ SCH ×2 (05:28→17:14)
[2020-04-02 08:57] LABS: Basophils % 0.5 %; Eosinophils # 0.2 K/mcL (0.0-0.6); Eosinophils % 3.9 %; Hematocrit 37.6 % (37.5-50.1); Hemoglobin 12.4 g/dL (12.9-16.9); Immature Granulocytes % 0.5 % (0-4); Lymphocytes # 1.6 K/mcL (0.6-4.6); Lymphocytes % 27.6 %; Mean Corpuscular Hemoglobin 28.2 pg (28.0-33.3); Mean Corpuscular Volume 85.6 fL (83.0-100.0); Mean Platelet Volume 9.3 fL (9.4-12.4); Monocytes # 0.7 K/mcL (0.0-1.3); Monocytes % 11.3 %; Neutrophils # 3.3 K/mcL (1.6-8.9); Platelet Count 229 K/mcL (140-400); Red Blood Count 4.39 M/mcL (4.19-5.50); Red Cell Distribution Width 12.3 % (11.5-14.5); Segmented Neutrophils % 56.2 %; White Blood Count 5.8 K/mcL (4.3-11.1)
[2020-04-02] MEDS ORDERED: NON-FORMULARY MEDICATION 1 EACH EACH (Pantoprazole Sodium [Protonix] 40 MG) PO SCH (09:00)
[2020-04-02 09:10] LABS: BUN/Creatinine Ratio 16 (6-26); Blood Urea Nitrogen 13 mg/dL (6-20); Calcium 8.6 mg/dL (8.6-10.3); Carbon Dioxide 26 mEq/L (23-29); Chloride 107 mEq/L (98-107); Glucose 148 mg/dL (70-105); Magnesium 1.8 mg/dL (1.6-2.6); Osmolality,Calculated 289 (280-300); Potassium 3.7 mEq/L (3.5-5.1); Sodium 138 mEq/L (136-145); eGFR For African Americans > 60 (> 60); eGFR For Non-African Americans > 60 (> 60)
[2020-04-02] MEDS: Pantoprazole 40 MG VIAL IVP SCH (10:03)
[2020-04-02] MEDS: Gabapentin 400 MG CAPSULE PO SCH ×3 (10:04→21:05)
[2020-04-02] MEDS: carvediloL 25 MG TABLET PO SCH ×2 (10:04→17:14)
[2020-04-02] MEDS: lisinopriL 20 MG TABLET PO SCH (10:04)
[2020-04-02] MEDS: GlipiZIDE 5 MG TABLET PO SCH (10:04)
[2020-04-02] MEDS: amLODIPine 5 MG TABLET PO SCH (10:04)
[2020-04-02] MEDS: Aspirin Enteric Coated 81 MG Tablet PO SCH (10:04)
[2020-04-02] MEDS: Sucralfate 1 GM TABLET PO SCH (10:04)
[2020-04-02] MEDS: *HR* OxyCODONE/APAP 5/325 TABLET PO PRN ×2 (10:08→21:05)
[2020-04-02 10:42] LABS: Adenovirus F 40/41 PCR Not detected (Not detect); Astrovirus PCR Not detected (Not detect); C.difficile Toxin A/B Gene PCR Not detected (Not detect); Campylobacter by PCR Not detected (Not detect); Cryptosporidium by PCR Not detected (Not detect); Cyclospora cayetanensis PCR Not detected (Not detect); E. coli O157 by PCR Not detected (Not detect); Entamoeba histolytica PCR Not detected (Not detect); Enteroaggregative E.coli(EAEC) Not detected (Not detect); Enterotoxigenic E.coli (ETEC) Not detected (Not detect); Giardia lamblia PCR Not detected (Not detect); Norovirus GI/GII PCR Not detected (Not detect); Plesiomonas shigelloides PCR Not detected (Not detect); Rotavirus A PCR Not detected (Not detect); Salmonella PCR Not detected (Not detect); Sapovirus PCR Not detected (Not detect); Shig/EnteroinvasiveE coli EIEC Not detected (Not detect); Shigalike tox-prod E coli STEC Not detected (Not detect); Vibrio PCR Not detected (Not detect); Vibrio cholerae PCR Not detected (Not detect); Yersinia enterocolitica PCR Not detected (Not detect)
[2020-04-02 10:43] LABS: Enteropathogenic E.coli(EPEC) DETECTED (Not detect)
[2020-04-02] MEDS: cloNIDine HCL 0.1 MG TABLET PO SCH (17:14)
[2020-04-03 04:37] LABS: Basophils % 0.5 %; Eosinophils # 0.3 K/mcL (0.0-0.6); Eosinophils % 5.5 %; Hematocrit 36.8 % (37.5-50.1); Hemoglobin 12.6 g/dL (12.9-16.9); Immature Granulocytes % 0.8 % (0-4); Lymphocytes # 1.9 K/mcL (0.6-4.6); Lymphocytes % 30.6 %; Mean Corpuscular HGB Conc 34.2 g/dL (31.6-35.5); Mean Corpuscular Hemoglobin 28.6 pg (28.0-33.3); Mean Corpuscular Volume 83.6 fL (83.0-100.0); Mean Platelet Volume 9.1 fL (9.4-12.4); Monocytes # 0.6 K/mcL (0.0-1.3); Monocytes % 9.1 %; Neutrophils # 3.2 K/mcL (1.6-8.9); Platelet Count 227 K/mcL (140-400); Red Cell Distribution Width 12.2 % (11.5-14.5); Segmented Neutrophils % 53.5 %
[2020-04-03 04:53] LABS: BUN/Creatinine Ratio 15 (6-26); Blood Urea Nitrogen 12 mg/dL (6-20); Calcium 8.9 mg/dL (8.6-10.3); Carbon Dioxide 27 mEq/L (23-29); Chloride 105 mEq/L (98-107); Glucose 144 mg/dL (70-105); Magnesium 1.8 mg/dL (1.6-2.6); Osmolality,Calculated 288 (280-300); Potassium 3.8 mEq/L (3.5-5.1); Sodium 138 mEq/L (136-145); eGFR For African Americans > 60 (> 60); eGFR For Non-African Americans > 60 (> 60)
[2020-04-03 06:09] LABS: Estimated Average Glucose 229 mg/dl
[2020-04-03] MEDS: *HR* Heparin 5,000 UNIT/ML VIAL SQ SCH (06:11)
[2020-04-03 07:29] VITALS: BP 117/66
[2020-04-03] MEDS: Insulin LISPRO 300 UNITS/3 ML VIAL SQ SCH (07:36)
[2020-04-03] MEDS: Gabapentin 400 MG CAPSULE PO SCH (08:11)
[2020-04-03] MEDS: lisinopriL 20 MG TABLET PO SCH (08:11)
[2020-04-03] MEDS: Pantoprazole 40 MG VIAL IVP SCH (08:12)
[2020-04-03] MEDS: carvediloL 25 MG TABLET PO SCH (08:12)
[2020-04-03] MEDS: Sucralfate 1 GM TABLET PO SCH (08:12)
[2020-04-03] MEDS: GlipiZIDE 5 MG TABLET PO SCH (08:12)
[2020-04-03] MEDS: Aspirin Enteric Coated 81 MG Tablet PO SCH (08:12)
[2020-04-03] MEDS: amLODIPine 5 MG TABLET PO SCH (08:12)
[2020-04-03] MEDS: *HR* OxyCODONE/APAP 5/325 TABLET PO PRN (08:14)
== END 2020-04-03 12:47 | disposition home or self-care (01) ==
LOC: 2ANU 21:54 → EMEROOARM 21:54 → SUATTDRO 04-01 08:13 → 2ANU 04-01 09:36
PROVIDERS: ADMIT Internal Medicine; ATTEND Pharmacist
PROC: ENDOEBX (2020-04-01 11:45)

== ENCOUNTER 2021-04-06 17:11 | Observation (INO) ==
[2021-04-06] MEDS ORDERED: Nitroglycerin 0.4 MG TAB.SUBL SL PRN (17:33)
[2021-04-06 18:26] LABS: Basophils % 0.4 %; Eosinophils # 0.3 K/mcL (0.0-0.6); Eosinophils % 3.2 %; Hematocrit 39.8 % (37.5-50.1); Hemoglobin 14.4 g/dL (12.9-16.9); Immature Granulocytes % 0.6 % (0-4); Lymphocytes # 1.7 K/mcL (0.6-4.6); Lymphocytes % 21.6 %; Mean Corpuscular HGB Conc 36.2 g/dL (31.6-35.5); Mean Corpuscular Hemoglobin 29.3 pg (28.0-33.3); Mean Corpuscular Volume 80.9 fL (83.0-100.0); Mean Platelet Volume 9.5 fL (9.4-12.4); Monocytes # 0.8 K/mcL (0.0-1.3); Monocytes % 10.5 %; Platelet Count 253 K/mcL (140-400); Red Blood Count 4.92 M/mcL (4.19-5.50); Red Cell Distribution Width 12.3 % (11.5-14.5); Segmented Neutrophils % 63.7 %; White Blood Count 7.9 K/mcL (4.3-11.1)
[2021-04-06 18:43] LABS: Alanine Aminotransferase 14 Units/L (7-52); Albumin 4.1 g/dL (3.5-5.7); Albumin/Globulin Ratio 1.4 (1.1-2.2); Alkaline Phosphatase 111 Units/L (34-104); Aspartate Amino Transferase 12 Units/L (13-39); BUN/Creatinine Ratio 12 (6-26); Bilirubin,Indirect 0.5 mg/dL (0.0-1.0); Bilirubin,Total 0.5 mg/dL (0.3-1.0); Blood Urea Nitrogen 10 mg/dL (6-20); Calcium 8.7 mg/dL (8.6-10.3); Carbon Dioxide 27 mEq/L (23-29); Chloride 101 mEq/L (98-107); Glucose 157 mg/dL (70-105); Lipase 10 Units/L (11-82); Osmolality,Calculated 286 (280-300); Sodium 137 mEq/L (136-145); Total Protein 7.1 g/dL (6.4-8.9); eGFR For African Americans > 60 (> 60); eGFR For Non-African Americans > 60 (> 60)
[2021-04-06 18:51] LABS: Troponin I < 0.03 ng/mL (< 0.04)
[2021-04-06 18:54] LABS: INR 1.1; Prothrombin Time 12.3 Seconds (9.4-12.1)
[2021-04-06 18:57] LABS: Activated Partial Thrombo Time 30.2 Seconds (26.0-36.0)
[2021-04-06] MEDS ORDERED: GI Cocktail 40 ML EACH PO ONE (21:12)
[2021-04-06] MEDS ORDERED: Dextrose Gel 15 GM/37.5 ML TUBE PO PRN ×2 (22:17)
[2021-04-06] MEDS ORDERED: D5% in Water 1,000 ML IVC PRN (22:17)
[2021-04-06] MEDS ORDERED: *HR* Dextrose 50 % in Water (Vial) 50 ML VIAL IVP PRN (22:17)
[2021-04-06 22:24] LABS: Amphetamine Screen,Urine Negative ng/mL (Cutoff=1000); Barbiturate Screen,Urine Negative ng/mL (Cutoff=200); Benzodiazepines Screen,Urine Negative ng/mL (Cutoff=200); Cannabinoid Screen,Urine Negative ng/mL (Cutoff = 50); Cocaine Screen,Urine Negative ng/mL (Cutoff= 300); Opiate Screen,Urine Positive ng/mL (Cutoff=300); Phencyclidine Screen,Urine Negative ng/mL (Cutoff=25)
[2021-04-06] MEDS ORDERED: Insulin LISPRO 300 UNITS/3 ML VIAL SUBQ SCH (22:30)
[2021-04-06] MEDS ORDERED: Morphine Sulfate 2 MG/ML SYRINGE IVP PRN (22:32)
[2021-04-06] MEDS ORDERED: Perflutren Lipid Microsphere 1.3 ML in 0.9 % Sodium Chloride 8.7 ML IVP PRN (22:47)
[2021-04-06] MEDS ORDERED: Acetaminophen 325 MG TABLET PO PRN (22:50)
[2021-04-06] MEDS ORDERED: Naloxone 0.4 MG/ML INJ IVP PRN (22:50)
[2021-04-06] MEDS ORDERED: cloNIDine HCL 0.1 MG TABLET PO SCH ×2 (23:30)
[2021-04-06] MEDS: *HR* OxyCODONE/APAP 10/325 TABLET PO PRN (23:43)
[2021-04-06] MEDS: Artificial Tears SOLN 15 ML BOTTLE BOTH EYES SCH (23:44)
[2021-04-07 00:03] LABS: Influenza A PCR Negative (Negative); Influenza B PCR Negative (Negative); Resp. Syncytial Virus PCR Negative (Negative)
[2021-04-07 00:04] LABS: SARS-CoV-2 by PCR (In House) Negative (Negative)
[2021-04-07] MEDS ORDERED: tiZANidine 4 MG TABLET PO PRN (00:28)
[2021-04-07 01:02] LABS: BUN/Creatinine Ratio 14 (6-26); Blood Urea Nitrogen 11 mg/dL (6-20); Calcium 8.5 mg/dL (8.6-10.3); Carbon Dioxide 26 mEq/L (23-29); Chloride 101 mEq/L (98-107); Chol/HDL Ratio 5.2 (0-4.9); Cholesterol 136 mg/dL (< 200); Glucose 242 mg/dL (70-105); HDL Cholesterol 26 mg/dL (40-59); LDL Cholesterol,Calculated 62 mg/dL (< 100); Magnesium 1.8 mg/dL (1.6-2.6); Osmolality,Calculated 289 (280-300); Sodium 136 mEq/L (136-145); Triglycerides 240 mg/dL (< 150); eGFR For African Americans > 60 (> 60); eGFR For Non-African Americans > 60 (> 60)
[2021-04-07 01:03] LABS: Iron 54 mcg/dL (65-175)
[2021-04-07 01:22] LABS: Ferritin 59 ng/mL (20-250)
[2021-04-07 01:54] LABS: % Iron Saturation 17 % (20-55); Transferrin 233 mg/dL (203-362)
[2021-04-07 02:51] LABS: Folate 13.9 ng/mL (3.0-16.0)
[2021-04-07] MEDS: *HR* Heparin 5,000 UNIT/ML VIAL SQ SCH ×2 (05:12→13:08)
[2021-04-07] MEDS ORDERED: Insulin LISPRO 300 UNITS/3 ML VIAL SUBQ SCH ×3 (06:00→17:00)
[2021-04-07] MEDS ORDERED: Regadenoson 0.4 MG/5 ML SYRINGE IVP ONE (06:34)
[2021-04-07 07:50] LABS: Hematocrit 39.3 % (37.5-50.1); Mean Corpuscular HGB Conc 35.6 g/dL (31.6-35.5); Mean Corpuscular Hemoglobin 29.1 pg (28.0-33.3); Mean Corpuscular Volume 81.7 fL (83.0-100.0); Platelet Count 223 K/mcL (140-400); Red Blood Count 4.81 M/mcL (4.19-5.50); Red Cell Distribution Width 12.5 % (11.5-14.5); White Blood Count 6.5 K/mcL (4.3-11.1)
[2021-04-07] MEDS ORDERED: carvediloL 25 MG TABLET PO SCH ×3 (08:00→17:00)
[2021-04-07 08:05] LABS: Estimated Average Glucose 212 mg/dl
[2021-04-07] MEDS ORDERED: Iron Sucrose Complex 400 MG in 0.9 % Sodium Chloride 250 ML IVPB ONE (08:27)
[2021-04-07] MEDS ORDERED: lisinopriL 20 MG TABLET PO SCH (09:00)
[2021-04-07] MEDS ORDERED: amLODIPine 5 MG TABLET PO SCH (09:00)
[2021-04-07] MEDS ORDERED: Aspirin Enteric Coated 325 MG Tablet PO SCH (09:00)
[2021-04-07] MEDS ORDERED: Multivit/Ca/Min/Fe/FA 1 TAB TABLET PO SCH (09:00)
[2021-04-07 09:09] VITALS: PULSE 64; O2SAT 96
[2021-04-07] MEDS: Artificial Tears SOLN 15 ML BOTTLE BOTH EYES SCH ×3 (09:18→17:50)
[2021-04-07] MEDS: Calcium Gluconate 1gm/50mL 1 GM/50 ML BAG IVPB SCH ×2 (09:18→14:38)
[2021-04-07] MEDS: *HR* OxyCODONE/APAP 10/325 TABLET PO PRN (09:20)
[2021-04-07] MEDS ORDERED: Insulin DETEMIR 100 UNIT/ML X5UNITS SUBQ ONE (12:42)
[2021-04-07] MEDS: Gabapentin 400 MG CAPSULE PO SCH ×2 (13:08→17:50)
[2021-04-07 15:41] VITALS: BP 147/91; TEMP 98.1
[2021-04-07] MEDS ORDERED: rOPINIRole 1 MG TABLET PO SCH (21:00)
[2021-04-08] MEDS ORDERED: Ergocalciferol (VIT D2) 50,000 UNIT (1.25MG) CAP PO SCH (09:00)
== END 2021-04-07 17:52 | disposition home or self-care (01) ==
LOC: 3BNU 17:11 → EMEROOARM 17:11 → SUATTDRO 20:56 → 3BNU 22:00
PROVIDERS: ADMIT Internal Medicine; ATTEND Internal Medicine